=== PATIENT | female | born 1990 | race Caucasian/White ===

== ENCOUNTER 2019-08-04 16:58 | Observation (INO) | payer OTHER, SELFPAY ==
[2019-08-04] VITALS (11 sets, daily range): BP systolic 119–167; BP diastolic 77–146; PULSE 92–106; RESP 15–20; TEMP 36.7–36.9; O2SAT 97–100; BMI 30.9
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
--- NOTE | 2019-08-04 17:41 | PC.NURSE ---
ORDERED XRAYS COMPLETED AT THIS TIME AT THE BEDSIDE
--- NOTE | 2019-08-04 17:43 | PC.NURSE ---
HUMIDIFIED OXYGEN MASK PLACED ON BY CARDIOPULMONARY LAND DEGRADATION ANALYST PER ERP VERBAL ORDERS. SEE RT DOCUMENTATION.
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
[2019-08-04 17:52] LABS: Base Excess ABG -2.2 mmol/L (0-2); Basophils Absolute Auto 0.03 K/mm3 (0.00-0.10); Basophils Percent Auto 0.2 % (0.0-1.0); Carboxyhemoglobin 1.6 % (0-1.5); Eosinophils Absolute Auto 0.06 K/mm3 (0.02-0.50); Eosinophils Percent Auto 0.4 % (1.0-6.0); HCO3 ABG 22.2 mmol/L (23-29); Hematocrit 40.4 % (35.0-49.0); Hemoglobin 13.9 g/dL (12.0-15.0); Immature Granulocyte Absolute 0.06 K/mm3 (0.00-0.00); Immature Granulocyte Percent A 0.4 % (0.0-0.0); Lymphocytes Absolute Auto 2.26 K/mm3 (1.10-4.50); Lymphocytes Percent Auto 16.1 % (18.0-42.0); Mean Corpuscular HGB Conc 34.4 g/dL (32.0-36.0); Mean Corpuscular Hemoglobin 29.3 pg (27.0-31.0); Mean Corpuscular Volume 85.2 fL (78.0-102.0); Mean Platelet Volume 8.9 fl (9.2-11.8); Methemoglobin ABG 0.3 % (0-1.5); Neutrophils Percent Auto 77.9 % (50.0-70.0); Oxygen Content ABG 16.9 %vol (16.0-22.0); Oxygen Saturation ABG 84.2 % (95-97); Oxyhemoglobin 82.6 % (94-100); PCO2 ABG 37.4 mmHg (35-45); PO2 ABG 46.4 mmHg (80-90); Platelet Count Result 277 K/mm3 (150-420); Red Blood Count 4.74 M/mm3 (4.20-5.40); Red Cell Distribution Width 11.8 % (11.6-14.4); Reduced Hemoglobin 15.5 % (0-1.5); Total Hemoglobin 14.6 g/dL; White Blood Count 14.1 K/mm3 (4.8-10.8)
[2019-08-04 17:54] LABS: pH ABG 7.39 (7.35-7.45)
[2019-08-04 17:55] LABS: Device SIMPLE MASK
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
[2019-08-04 18:07] LABS: Alanine Aminotransferase 22 U/L (14-59); Albumin Level 4.4 g/dL (3.4-5.0); Alkaline Phosphatase 49 U/L (46-116); Anion Gap 15.5 mmol/L (7-16); Aspartate Amino Transferase 18 U/L (15-37); Bilirubin,Total 0.7 mg/dL (0.00-1.00); Blood Urea Nitrogen 15 mg/dL (7-18); Calcium 9.3 mg/dL (8.5-10.1); Carbon Dioxide 26 mmol/L (21-32); Chloride 105 mmol/L (98-108); Estimated CRCL calculation 80 ml/min; Estimated Glomerular Filt Rate > 60; Glucose 93 mg/dL (70-99); Osmolality Calculated 296 mOsm/kg (285-295); Potassium 3.5 mmol/L (3.5-5.1); Sodium 143 mmol/L (136-145); Total Protein 7.8 g/dL (6.4-8.2)
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
--- NOTE | 2019-08-04 20:31 | PC.NURSE ---
PT REPORTS FEELING MUCH BETTER NOW, STATES SHE IS HAVING LESS EPISODES OF COUGHING, LESS PAIN UPON INSPIRATION, AND LESS SORENESS/SCRATCHY THROAT.
--- NOTE | 2019-08-04 20:32 | PC.NURSE ---
TELEPHONE REPORT PROVIDED TO JOVON CALLAWAY AT 2014.
--- NOTE | 2019-08-04 21:20 | PC.NURSE ---
Patient resting quietly. Denies SOB unless she's talking or laughing. O2 continues @ 5 lpm/nc. Denies pain/complaints/needs @ this time. No distress noted. Call light in reach.
--- NOTE | 2019-08-04 22:05 | PC.NURSE ---
Patient doing well. O2 @ 5 lpm/simple mask. Respirations even and unlabored. Denies SOB except when talking or laughing. Denies pain/complaints/needs @ this time. No distress noted. Call light in reach.
--- NOTE | 2019-08-04 22:06 | ADMGEN ---
This patient, Casey C Bennett, was admitted to 2nd Floor Room 202-2. Patient oriented to hospital policies and general routines including ID bracelet, bed and alarms, no visiting hours @ this time, pain management, procedures, bathroom and other care routines, personal items, smoking policy, room service/diet, and visiting hours. Valuables list is clothing, wallet, cell phone and top taper machine, eye glasses. Information on how to activate the Rapid Response Team has been discussed. Patient are encouraged to report perceived risks to care and to ask questions if they do not understand what they are told or what they should do.
--- NOTE | 2019-08-04 23:20 | PC.NURSE ---
Patient still doing well. O2 @ 5 lpm/simple mask. Respirations even and unlabored. Denies SOB except when talking or laughing. Denies pain/complaints/needs @ this time. No distress noted. Call light in reach.
[2019-08-05] VITALS (8 sets, daily range): BP systolic 116–143; BP diastolic 55–80; PULSE 70–90; RESP 18–20; TEMP 36.2–36.3; O2SAT 98–100
--- NOTE | 2019-08-05 00:30 | PC.NURSE ---
Respirations even and unlabored on O2 @ 5 lpm/simple mask. Patient denies being SOB. O2 changed to 3 lpm/nc @ this time. No distress noted. Call light in reach.
--- NOTE | 2019-08-05 01:20 | PC.NURSE ---
Patient denies SOB. O2 continues @ 3 lpm/nc. Patient denies pain/complaints/needs @ this time. No distress noted. Call light in reach.
--- NOTE | 2019-08-05 02:15 | PC.NURSE ---
Respirations even and unlabored and SpO2 @ 100% with O2 @ 3 lpm/nc. Patient denies SOB. O2 turned down to 2 lpm/nc @ this time. No distress noted. Denies pain/complaints/needs. Call light in reach. 5 o
--- NOTE | 2019-08-05 03:30 | PC.NURSE ---
Patient appears to be sleeping by the rise and fall of her chest. Respirations even and unlabored. O2 on @ 2 lpm/nc. No distress noted. Call light in reach.
--- NOTE | 2019-08-05 04:51 | PC.NURSE ---
Patient's VSS. SpO2 @ 99% on 2 lpm/nc. Patient denies SOB, including with exertion. O2 decreased to 1 lpm/nc @ this time. Patient also denies pain/complaints/needs @ this time. No distress noted. Call light in reach.
--- NOTE | 2019-08-05 05:50 | PC.NURSE ---
Patient continues to deny SOB. O2 is @ 1 lpm/nc with SpO2 @ 100%. O2 turned off @ this time. Patient also denies pain/complaints/needs @ this time. No distress noted. Call light in reach.
--- NOTE | 2019-08-05 06:20 | PC.NURSE ---
Patient's SpO2 @ 98% on room air. Patient denies SOB/pain/complaints/needs @ this time. Patient denies sore throat and says she ate potato chips earlier and had a turkey sandwich in ER and would like a regular diet for breakfast. No distress noted. Call light in reach.
--- NOTE | 2019-08-05 07:30 | PC.NURSE ---
No distress, no irritation to throat, no pain, no sob, maintains airway on own, no longer requiring oxygen at this time
--- NOTE | 2019-08-05 08:30 | PC.NURSE ---
Ate well, denies needs, hoping to go home today, maintaining patent airway on own, no irritation, no sob
--- NOTE | 2019-08-05 09:31 | PC.NURSE ---
Maintains airway, denies needs
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
--- NOTE | 2019-08-05 10:43 | PC.NURSE ---
Discharge instructions reviewed with patient, denies questions, will call for ride home
--- NOTE | 2019-08-05 11:00 | PC.NURSE ---
Discharged via wheel chair to home, personal items returned to patient, no questions upon discharge home
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
--- NOTE | 2019-08-19 15:38 | PC.NURSE ---
DISCHARGE FOLLOW UP CALL: No answer, message left on voicemail
--- NOTE | 2019-08-20 14:50 | PC.NURSE ---
#2 DISCHARGE FOLLOW UP CALL: Patient at work, will call back
== END 2019-08-05 11:00 | disposition home or self-care (01) ==
LOC: CHSED 19:29 → CHS2ND 20:02
PROVIDERS: Admitting Provider Emergency Medicine; Emergency Provider Emergency Medicine; PCP Nurse Practitioner Psychiatric/Mental Health; Visit Provider Emergency Medicine
DX: T59.811A Toxic effect of smoke, accidental (unintentional), initial encounter (principal); J70.5 Respiratory conditions due to smoke inhalation; Y92.019 Unspecified place in single-family (private) house as the place of occurrence of the external cause
CPT/HCPCS: 36415; 36600; 70360; 71045; 80053; 82375; 82805; 83050; 85025; 99285; G0378

== ENCOUNTER 2019-10-14 17:56 | Outpatient (CLI) | payer OTHER, SELFPAY ==
--- NOTE | ~2019-10-14 | XR_ITS ---
EXAMINATION: XR ankle RT min 3V INDICATION: Lateral ankle pain TECHNIQUE: Four views of the right ankle are obtained. COMPARISON: None available FINDINGS: There is no fracture, dislocation, or subluxation. The bones, soft tissues, and joint space s are normal. IMPRESSION: 1. No acute osseous abnormality. Reviewed, dictated and finalized at location A.
== END 2019-10-14 17:57 | disposition home or self-care (01) ==
LOC: CHSIMG 17:58
PROVIDERS: PCP Nurse Practitioner Psychiatric/Mental Health; Visit Provider Nurse Practitioner Psychiatric/Mental Health
DX: M25.571 Pain in right ankle and joints of right foot (principal)
CPT/HCPCS: 73610

== ENCOUNTER 2020-05-14 14:17 | Outpatient (CLI) | payer SELFPAY ==
[2020-05-14 15:21] LABS: SARS-CoV-2 Ag Negative (Negative)
[2020-05-16 17:16] LABS: SARS-CoV-2 RNA PCR Negative
== END 2020-05-14 14:18 | disposition home or self-care (01) ==
LOC: CHSLAB 14:20
PROVIDERS: PCP Family Medicine; Visit Provider Nurse Practitioner Psychiatric/Mental Health
DX: R09.81 Nasal congestion (principal); Z20.822 Contact with and (suspected) exposure to COVID-19
CPT/HCPCS: 87426; C9803; U0003; U0005

== ENCOUNTER 2021-08-09 13:30 | Outpatient (CLI) | payer BC, SELFPAY ==
--- NOTE | ~2021-08-09 | US_ITS ---
EXAMINATION: US OB BPP wo non-stress DATE: 08/09/2021 15:29 INDICATION: Maternal gestational diabetes. Cholestasis. TECHNIQUE: Real-time pelvic ultrasound was performed. The interpreting radiologist was not present fo r the study. COMPARISON: None. FINDINGS: There is a single living fetus in vertex presentation. The placenta is posterior. heart rate i s 152 beats per minute (bpm). Biophysical profile performed by the technologist: breathing (30 sec sustained breathing in 30 minutes): 2 out of 2 movement (3 gross body movements in 30 minutes): 2 out of 2 tone (one episode of bntgykx-jwnujxlmw-eqybjhf limb movement): 2 out of 2 Amniotic fluid pocket (2 cm): 2 out of 2 Total score: 8 out of 8 IMPRESSION: 1. Single living fetus in vertex presentation with heart rate of 152 bpm. 2. Biophysical profile 8 out of 8. Reviewed, dictated and finalized at location A.
[2021-08-09 13:59] VITALS: BP 157/100; PULSE 83
[2021-08-09 14:16] VITALS: BP 154/86; PULSE 84
[2021-08-09 14:32] VITALS: BP 154/86; PULSE 77
[2021-08-09 14:43] LABS: Basophils Percent Auto 0.3 % (0.2-1.2); Eosinophils Absolute Auto 0.2 K/mm3 (0-0.3); Eosinophils Percent Auto 2.3 % (0-4.4); Hematocrit 33.6 % (37.0-47.0); Hemoglobin 11.5 g/dL (12.0-15.0); Immature Granulocyte Absolute 0.06 K/mm3 (0.00-0.031); Immature Granulocyte Percent A 0.6 % (0-0.5); Lymphocytes Absolute Auto 2.03 K/mm3 (0.9-3.2); Lymphocytes Percent Auto 20.3 % (18.3-44.2); Mean Corpuscular HGB Conc 34.2 g/dl (32-36); Mean Corpuscular Hemoglobin 29.9 pg (26-34); Mean Corpuscular Volume 87.5 fl (80-100); Mean Platelet Volume 9.5 fl (7.4-10.4); Monocytes Absolute Auto 0.8 K/mm3 (0.1-0.6); Monocytes Percent Auto 7.6 % (2.6-8.5); Neutrophils Absolute Auto 6.9 K/mm3 (1.3-6.7); Neutrophils Percent Auto 68.9 % (45.5-73.1); Platelet Count Result 309 k/mm3 (150-375); Red Blood Count 3.84 M/mm3 (4.2-5.4); Red Cell Distribution Width 12.8 % (11.5-14.5)
[2021-08-09 14:46] VITALS: BP 154/87; PULSE 82
[2021-08-09 14:49] LABS: Appearance Urine Clear (Clear); Bilirubin Urine Negative (Negative); Blood Urine Negative (Negative); Color Urine Yellow (Yellow); Glucose Urine UA Negative (Negative); Ketones Urine Negative (Negative); Leukocyte Esterase Ur Trace LEU/UL (NEGATIVE); Nitrate Urine Negative (Negative); Protein Urine Negative (Negative); Specific Grav Ur <= 1.005 (1.001-1.035); Urobilinogen Urine 0.2 mg/dL (<2.0); pH Urine 6.5 (5.0-9.0)
[2021-08-09 14:53] LABS: Alanine Aminotransferase 15 U/L (4-35); Albumin Level 3.7 g/dL (3.5-5.1); Alkaline Phosphatase 84 U/L (38-126); Anion Gap 5 mmol/L (8-16); Aspartate Amino Transferase 22 U/L (14-36); Bilirubin,Total 0.3 mg/dL (0.2-1.3); Blood Urea Nitrogen 9 mg/dL (7-17); Calcium 9.5 mg/dL (8.4-10.2); Carbon Dioxide 22 mmol/L (22-30); Chloride 106 mmol/L (98-107); Estimated Glomerular Filt Rate > 60; Glucose 109 mg/dL (65-110); Potassium 3.9 mmol/L (3.4-5.0); Sodium 133 mmol/L (137-145); Uric Acid 5.5 mg/dL (2.5-7.5)
[2021-08-09 15:03] LABS: Bacteria Urine 2+ /hpf; RBC Urine 0-2 /hpf (0-2); Squamous Epithelial Cell Urine Rare /hpf (Few); WBC Urine 0-3 /hpf (0-3)
[2021-08-09 15:04] LABS: Creatinine Urine 13.8 mg/dL; Total Protein Urine Random 15 mg/dL; Ur Ttl Prot Creatinine Ratio 1.09 mg/mg (0-0.20)
[2021-08-09 15:29] LABS: Add Urine Microscopic? YES
--- NOTE | 2021-08-09 17:10 | PC.NURSE ---
1606- called,read labs and bp's. Order received to send pt home on modified bedrest, pre-eclampsia precautions, and with a 24hr urine.
--- NOTE | 2021-08-09 17:11 | PC.NURSE ---
1330-Pt was sent over from the office for elevated bp, PIH orders received along with NST and BPP
== END 2021-08-09 16:15 | disposition home or self-care (01) ==
LOC: ANHOBOP 13:42 → ANHOBPP 08-15 08:25
PROVIDERS: PCP Family Medicine; Visit Provider Obstetrics & Gynecology
DX: O24.419 Gestational diabetes mellitus in pregnancy, unspecified control (principal); Z3A.00 Weeks of gestation of pregnancy not specified
CPT/HCPCS: 36415; 59025; 76819; 80053; 81001; 82570; 84156; 84550; 85025; 87086; 99199

== ENCOUNTER 2021-08-10 19:10 | Outpatient (NON) | payer BC, SELFPAY ==
[2021-08-11 00:26] VITALS: BMI 36.6
[2021-08-11 02:27] LABS: Collection Time Urine 24 HOURS
[2021-08-11 05:43] LABS: Creatinine Urine 86.1 mg/dL; Patient Weight 220 Lbs
[2021-08-11 06:00] LABS: Creatinine Clearance Urine 138.6 ml/min (75-125); Total Volume 24 Hour Urine 2200 ml
[2021-08-12 10:01] LABS: Total Protein Urine 24 Hr 374 mg/24hr (28-141); Total Protein Urine Random 17 mg/dL
== END 2021-08-10 19:11 | disposition home or self-care (01) ==
LOC: ANHOBOP 23:57
PROVIDERS: PCP Family Medicine; Visit Provider Obstetrics & Gynecology
DX: R80.9 Proteinuria, unspecified (principal)
CPT/HCPCS: 81050; 82575; 84156

== ENCOUNTER 2021-08-12 16:01 | Outpatient (CLI) | payer BC, SELFPAY ==
[2021-08-12 17:00] LABS: Basophils Percent Auto 0.2 % (0.2-1.2); Eosinophils Absolute Auto 0.2 K/mm3 (0-0.3); Eosinophils Percent Auto 1.9 % (0-4.4); Hematocrit 33.4 % (37.0-47.0); Hemoglobin 11.2 g/dL (12.0-15.0); Immature Granulocyte Absolute 0.09 K/mm3 (0.00-0.031); Immature Granulocyte Percent A 0.8 % (0-0.5); Lymphocytes Absolute Auto 2.13 K/mm3 (0.9-3.2); Lymphocytes Percent Auto 19.5 % (18.3-44.2); Mean Corpuscular HGB Conc 33.5 g/dl (32-36); Mean Corpuscular Hemoglobin 29.7 pg (26-34); Mean Corpuscular Volume 88.6 fl (80-100); Mean Platelet Volume 9.3 fl (7.4-10.4); Monocytes Absolute Auto 0.9 K/mm3 (0.1-0.6); Monocytes Percent Auto 8.1 % (2.6-8.5); Neutrophils Absolute Auto 7.6 K/mm3 (1.3-6.7); Neutrophils Percent Auto 69.5 % (45.5-73.1); Platelet Count Result 281 k/mm3 (150-375); Red Blood Count 3.77 M/mm3 (4.2-5.4); White Blood Count 10.9 K/mm3 (4.5-10.0)
[2021-08-12 17:01] VITALS: BP 146/87; PULSE 77
[2021-08-12 17:04] LABS: Add Urine Microscopic? YES; Appearance Urine Clear (Clear); Bacteria Urine 4+ /hpf; Bilirubin Urine Negative (Negative); Blood Urine Negative (Negative); Color Urine Straw (Yellow); Glucose Urine UA Negative (Negative); Ketones Urine Negative (Negative); Leukocyte Esterase Ur Trace LEU/UL (NEGATIVE); Mucus Urine Rare /lpf; Nitrate Urine Negative (Negative); Protein Urine Negative (Negative); RBC Urine 0-2 /hpf (0-2); Specific Grav Ur 1.003 (1.001-1.035); Squamous Epithelial Cell Urine Few /hpf (Few); Urobilinogen Urine Negative mg/dL (<2.0); WBC Urine 0-3 /hpf (0-3)
[2021-08-12 17:16] VITALS: BP 145/85; PULSE 79
[2021-08-12 17:16] LABS: Alanine Aminotransferase 13 U/L (4-35); Albumin Level 3.6 g/dL (3.5-5.1); Alkaline Phosphatase 78 U/L (38-126); Anion Gap 5 mmol/L (8-16); Aspartate Amino Transferase 20 U/L (14-36); Bilirubin,Total 0.3 mg/dL (0.2-1.3); Blood Urea Nitrogen 10 mg/dL (7-17); Carbon Dioxide 21 mmol/L (22-30); Chloride 106 mmol/L (98-107); Estimated Glomerular Filt Rate > 60; Glucose 86 mg/dL (65-110); Sodium 132 mmol/L (137-145); Uric Acid 4.8 mg/dL (2.5-7.5)
[2021-08-12 17:21] LABS: Creatinine Urine 18.5 mg/dL; Total Protein Urine Random 14 mg/dL; Ur Ttl Prot Creatinine Ratio 0.76 mg/mg (0-0.20)
[2021-08-12 17:31] VITALS: BP 152/86; PULSE 88
[2021-08-12 17:33] VITALS: BP 146/87; PULSE 79
--- NOTE | 2021-08-12 17:35 | PC.NURSE ---
Dr Goins notified of lab results, BP's, reactive tracing and contractions that were noted and patient not feeling them. Ok to dc home with precautions. RX for Macrobid 100mg BID for 7 day.
== END 2021-08-12 17:45 | disposition home or self-care (01) ==
LOC: ANHOBOP 16:12 → ANHOBPP 16:13
PROVIDERS: Advanced Practice Midwife; PCP Family Medicine; Visit Provider Obstetrics & Gynecology
DX: O13.9 Gestational [pregnancy-induced] hypertension without significant proteinuria, unspecified trimester (principal); Z3A.00 Weeks of gestation of pregnancy not specified
CPT/HCPCS: 36415; 59025; 80053; 81001; 82570; 84156; 84550; 85025; 87086; 99199

== ENCOUNTER 2021-08-19 10:05 | Inpatient (IN) | payer BC, SELFPAY ==
[2021-08-19] VITALS (88 sets, daily range): BP systolic 121–190; BP diastolic 61–118; PULSE 74–121; RESP 16–20; TEMP 36.6–37.4; O2SAT 86–100; BMI 36.3; BMI 37.0
[2021-08-19 10:40] LABS: Basophils Percent Auto 0.3 % (0.2-1.2); Eosinophils Absolute Auto 0.3 K/mm3 (0-0.3); Eosinophils Percent Auto 2.2 % (0-4.4); Hematocrit 34.3 % (37.0-47.0); Hemoglobin 11.4 g/dL (12.0-15.0); Immature Granulocyte Percent A 0.8 % (0-0.5); Lymphocytes Percent Auto 16.1 % (18.3-44.2); Mean Corpuscular HGB Conc 33.2 g/dl (32-36); Mean Corpuscular Hemoglobin 29.5 pg (26-34); Mean Corpuscular Volume 88.9 fl (80-100); Mean Platelet Volume 9.5 fl (7.4-10.4); Monocytes Absolute Auto 0.6 K/mm3 (0.1-0.6); Monocytes Percent Auto 4.7 % (2.6-8.5); Neutrophils Percent Auto 75.9 % (45.5-73.1); Platelet Count Result 239 k/mm3 (150-375); Red Blood Count 3.86 M/mm3 (4.2-5.4); Red Cell Distribution Width 13.2 % (11.5-14.5); White Blood Count 11.8 K/mm3 (4.5-10.0)
[2021-08-19 10:48] LABS: Add Urine Microscopic? YES; Appearance Urine Cloudy (Clear); Bacteria Urine Trace /hpf; Bilirubin Urine Negative (Negative); Color Urine Yellow (Yellow); Glucose Urine UA Negative (Negative); Ketones Urine Negative (Negative); Leukocyte Esterase Ur 1+ LEU/UL (Negative); Nitrate Urine Negative (Negative); Protein Urine 1+ mg/dL (Negative); Squamous Epithelial Cell Urine Moderate /hpf (Few); Urobilinogen Urine Negative mg/dL (<2.0); WBC Urine 16-20 /hpf
[2021-08-19 10:53] LABS: Alanine Aminotransferase 15 U/L (4-35); Albumin Level 3.3 g/dL (3.5-5.1); Alkaline Phosphatase 82 U/L (38-126); Anion Gap 9 mmol/L (8-16); Aspartate Amino Transferase 22 U/L (14-36); Bilirubin,Total 0.3 mg/dL (0.2-1.3); Blood Urea Nitrogen 13 mg/dL (7-17); Calcium 9.1 mg/dL (8.4-10.2); Carbon Dioxide 19 mmol/L (22-30); Chloride 104 mmol/L (98-107); Creatinine Urine 135.3 mg/dL; Estimated CRCL calculation 119 ml/min; Estimated Glomerular Filt Rate > 60; Glucose 140 mg/dL (65-110); Potassium 3.9 mmol/L (3.4-5.0); Sodium 132 mmol/L (137-145); Total Protein Urine Random 21 mg/dL; Ur Ttl Prot Creatinine Ratio 0.16 mg/mg (0-0.20); Uric Acid 5.7 mg/dL (2.5-7.5)
[2021-08-19 11:08] LABS: Blood Urine Negative (Negative)
--- NOTE | 2021-08-19 11:53 | PC.NURSE ---
Vick Nixon CN notified of BP's, lab results, and reactive NST. SUJATHAM has already spoken with Dr. Andrade regarding this pt and orders received to admit for induction of labor and magnesium sulfate.
--- NOTE | 2021-08-19 12:42 | PM.IMHP ---
H&P: HPI History of Present Illness Date/Time: 08/19/21 12:42 @ 35.4 weeks. Patient being admitted for IOL for pre eclampsia with severe range blood pressures, Cholestasis, and GDM. IVF . [employer] hx complicated by PCOS. Prior hx of hypertension. Currently taking aspirin and ursodiol. Currently denies headache, but has faiza having increase in daily mild headache. Has occasional visual changes. Denies epigastric pain. Consulted Dr. Andrade. Chief Complaint: Severe range blood pressures Review of Systems Review of Systems: All systems reviewed & are unremarkable except as noted in HPI and below PMFSH Family History Family History Grandparent Family history of blood dyscrasia, Onset Age: 64 Family history of elevated blood lipids Family history of coronary artery disease Diabetes mellitus Father Hypertension Family history of diabetes mellitus in first degree relative Mother Family history of hypothyroidism Social History Social History Smoking status: Never smoker Second hand tobacco smoke exposure: No Alcohol intake: current Drinks per week: 1 Substance use: never Substance use type: does not use Gender identity (if verbalized by the patient): Female Spiritual care concerns: No Agree to blood products: Yes Meds Home Medications and Allergies Home Medications Medication Instructions Recorded Confirmed Type nitrofurantoin macrocrystal 100 mg PO Q12H #14 cap 08/12/21 08/19/21 Rx PNV cmb#95-ferrous fumarate-FA 1 tablet PO DAILY 08/19/21 08/19/21 History [] aspirin 81 mg PO DAILY 08/19/21 08/19/21 History ursodiol 300 mg PO BID 08/19/21 08/19/21 History Allergies Allergy/AdvReac Type Severity Reaction Status Date / Time Penicillins Allergy Unknown Unknown Verified 08/19/21 10:51 Vital Signs Vital Signs - 24 hr 08/19/21 10:32 08/19/21 10:33 08/19/21 10:44 Pulse Rate 104 H 93 104 H Blood Pressure 138/96 H 157/100 H Blood Pressure [Left Arm] 157/100 H Blood Pressure [Right Arm] 138/96 H 08/19/21 10:45 08/19/21 10:54 08/19/21 10:56 Pulse Rate 98 97 88 Blood Pressure 154/98 H 152/92 H 154/90 H Blood Pressure [Left Arm] Blood Pressure [Right Arm] 08/19/21 11:00 08/19/21 11:15 08/19/21 11:30 Pulse Rate 101 H 99 102 H Blood Pressure 151/88 H 148/95 H 146/92 H Blood Pressure [Left Arm] Blood Pressure [Right Arm] 08/19/21 11:45 Pulse Rate 99 Blood Pressure 142/100 H Blood Pressure [Left Arm] Blood Pressure [Right Arm] Exam Narrative: 2/80/-2 AROM, small amount of clear fluid Const: General: cooperative, healthy appearing and comfortable H&P: Results Labs Labs: Short CBC 08/19/21 Range/Units 10:32 WBC 11.8 H (4.5-10.0) K/mm3 Hgb 11.4 L (12.0-15.0) g/dL Hct 34.3 L (37.0-47.0) % Plt Count 239 (150-375) k/mm3 BMP 08/19/21 10:32 Sodium 132 L Potassium 3.9 Chloride 104 Carbon Dioxide 19 L BUN 13 Creatinine 0.70 Glucose 140 H Calcium 9.1 Liver Function 08/19/21 Range/Units 10:32 Total Bilirubin 0.3 (0.2-1.3) mg/dL AST 22 (14-36) U/L ALT 15 (4-35) U/L Alkaline Phosphatase 82 (38-126) U/L Albumin 3.3 L (3.5-5.1) g/dL Urine 08/19/21 Range/Units 10:32 Urine Color Yellow (Yellow) Urine Appearance Cloudy H (Clear) Urine pH 6.0 (5.0-9.0) Ur Specific [place] 1.020 (1.001-1.035) Urine Protein 1+ H (Negative) mg/dL Urine Glucose (UA) Negative (Negative) mg/dL Assessment and Plan Additional Plan at 35.4 weeks with severe pre eclampsia. Plan magnesium sulfate, monitor BP
[2021-08-19] MEDS: LACTATED RINGERS 1,000 ML 75 ML IV CONT (13:01)
[2021-08-19] MEDS: OXYTOCIN 30 UNITS/NS 500 ML 30 UNITS/500 ML BAG IV CONT (13:01)
[2021-08-19] MEDS: ceFAZolin 2 GM/D5W 50 ML 2 GM/50 ML BAG IVPB (13:02)
[2021-08-19 14:25] LABS: Glucose Point of Care 91 mg/dl (65-105)
[2021-08-19] MEDS: MAGNESIUM SULF 4 GM/WATER100ML 4 GM/100 ML BAG IVPB (15:00)
--- NOTE | 2021-08-19 15:05 | LDADM ---
This patient, Casey C Bennett, was admitted to Labor/Delivery/Recovery 105 on 08/19/21 at 10:05. Plans for labor, pain management and were discussed with patient. Patient/family oriented to hospital policies and general routines including ID bracelet, bed and alarms, visiting hours, pain management, procedures, bathroom and other care routines, personal items, smoking policy, room service/diet and guest tray routines, infant security routines, and visiting hours. Patient/Family are encouraged to report perceived risks to care and to ask questions if they do not understand what they are told or what they should do. See OBIX for further documentation.
[2021-08-19] MEDS: MAGNESIUM SULF 20GM/WATER500ML 500 ML 50 MG IV CONT (15:29)
--- NOTE | 2021-08-19 18:38 | WPDANESEPP ---
Anes - Eval Pre Procedure Procedure: labor epidural Date/Time: 08/19/21 18:38 Surgeon: carlos manuel Pre Op Diagnosis: Induction of Labor Patient Data Age: 31 Gender: F Height: 1.65 m Weight: 101 kg Last Vital Signs Temp 36.6 C 08/19/21 17:00 Pulse 80 08/19/21 18:31 Resp 16 08/19/21 15:00 BP 135/103 H 08/19/21 18:31 Allergies Allergy/AdvReac Type Severity Reaction Status Date / Time Penicillins Allergy Unknown Unknown Verified 08/19/21 10:51 Home Medications Medication Instructions Recorded Confirmed Type nitrofurantoin macrocrystal 100 mg PO Q12H #14 cap 08/12/21 08/19/21 Rx PNV cmb#95-ferrous fumarate-FA 1 tablet PO DAILY 08/19/21 08/19/21 History [] aspirin 81 mg PO DAILY 08/19/21 08/19/21 History ursodiol 300 mg PO BID 08/19/21 08/19/21 History Laboratory Tests 08/19/21 08/19/21 08/19/21 10:32 10:32 10:32 WBC 11.8 K/mm3 H K/mm3 (4.5-10.0) RBC 3.86 M/mm3 L M/mm3 (4.2-5.4) Hgb 11.4 g/dL L g/dL (12.0-15.0) Hct 34.3 % L % (37.0-47.0) MCV 88.9 fl fl (80-100) MCH 29.5 pg pg (26-34) MCHC 33.2 g/dl g/dl (32-36) RDW 13.2 % % (11.5-14.5) Plt Count 239 k/mm3 k/mm3 (150-375) MPV 9.5 fl fl (7.4-10.4) Immature Gran % (Auto) 0.8 % H % (0-0.5) Neut % (Auto) 75.9 % H % (45.5-73.1) Lymph % (Auto) 16.1 % L % (18.3-44.2) [place] % (Auto) 4.7 % % (2.6-8.5) Eos % (Auto) 2.2 % % (0-4.4) Baso % (Auto) 0.3 % % (0.2-1.2) Lymph # (Auto) 1.90 K/mm3 K/mm3 (0.9-3.2) [place] # (Auto) 0.6 K/mm3 K/mm3 (0.1-0.6) Eos # (Auto) 0.3 K/mm3 K/mm3 (0-0.3) Baso # (Auto) 0.0 K/mm3 K/mm3 (0.0-0.1) Abs Immat Gran (auto) 0.10 K/mm3 H K/mm3 (0.00-0.031) Absolute Neuts (auto) 9.0 K/mm3 H K/mm3 (1.3-6.7) Absolute Nucleated RBC 0.0 K/mm3 K/mm3 (0.0-0.012) Nucleated RBC % 0.0 % % (0.0-0.2) Sodium 132 mmol/L L mmol/L (137-145) Potassium 3.9 mmol/L mmol/L (3.4-5.0) Chloride 104 mmol/L mmol/L (98-107) Carbon Dioxide 19 mmol/L L mmol/L (22-30) Anion Gap 9 mmol/L mmol/L (8-16) BUN 13 mg/dL mg/dL (7-17) Creatinine 0.70 mg/dL mg/dL (0.7-1.0) Estim Creat Clear Calc 119 ml/min ml/min Estimated GFR > 60 (59 - ) Glucose 140 mg/dL H mg/dL (65-110) POC Capillary Glucose Uric Acid 5.7 mg/dL mg/dL (2.5-7.5) Calcium 9.1 mg/dL mg/dL (8.4-10.2) Total Bilirubin 0.3 mg/dL mg/dL (0.2-1.3) AST 22 U/L U/L (14-36) ALT 15 U/L U/L (4-35) Alkaline Phosphatase 82 U/L U/L (38-126) Total Protein 7.0 g/dL g/dL (6.3-8.2) Albumin 3.3 g/dL L g/dL (3.5-5.1) Urine Color Urine Appearance Urine pH Ur Specific [place] Urine Protein Urine Glucose (UA) Urine Ketones Ur Blood (Man) Urine Nitrate Urine Bilirubin Urine Urobilinogen Leukocyte Esterase Rfl Urine RBC Urine WBC Ur Squamous Epith Cells Urine Bacteria U Random Total Protein 21 mg/dL mg/dL Urine Creatinine 135.3 mg/dL mg/dL Protein/Creat Ratio 2 0.16 mg/mg mg/mg (0-0.20) RPR Blood Type Antibody Screen 08/19/21 08/19/21 08/19/21 10:32 12:35 12:35 WBC RBC Hgb Hct MCV MCH MCHC RDW Plt Count MPV Immature Gran % (Auto) Neut % (Auto) Lymph % (Auto) [place] % (Auto) Eos % (Auto)
[2021-08-19 19:08] LABS: Glucose Point of Care 94 mg/dl (65-105)
--- NOTE | 2021-08-19 20:04 | PM.OBPRVD ---
OB - Delivery Note Procedure Delivery date: 08/19/21 Events: Gestational Diabetes, Preeclampsia w severe features and Other (Cholestasis) Induction method: AROM and Per Pitocin Protocol Delivery monitor: External FHT and External Uterine Route of delivery: Laceration Description: None Specimen: Yes Quantitative Blood Loss (ml): 127 Anesthesia type: Epidural Disposition: Floor Narrative: Vaginal delivery of baby girl. Mother and baby skin to skin and in stable condition. Baby Date of : 08/19/21 Time of : 19:50 Weeks of gestation at delivery: 35 gender: Female Weight (pounds): 5 Weight (ounces): 5 presentation: vertex position: Left Occiput Anterior Placenta delivery description: Spontaneous Cord Vessel Description: 3 Vessels, Nuchal Cord (reduced x1), Loose, Reduced, Clamped/Cut and Delayed Cord Clamping (2 mins) score one minute: 8 score five minutes: 9
[2021-08-19] MEDS: OXYTOCIN 30 UNITS/NS 500 ML 30 UNITS/500 ML BAG 125 UNITS IV CONT (20:38)
[2021-08-19] MEDS: ACETAMINOPHEN 325 MG TABLET 650 MG PO (22:03)
[2021-08-19] MEDS: IBUPROFEN 600 MG TABLET PO (22:04)
[2021-08-19] MEDS: BENZOCAINE 20% AER SPR (*SP) 56 GM CAN 1 SPRAY TOPICAL (22:04)
[2021-08-19] MEDS: WITCH HAZEL 40 PADS 1 PAD TOPICAL (22:04)
[2021-08-20] VITALS (7 sets, daily range): BP systolic 135–153; BP diastolic 86–103; PULSE 88–107; RESP 16–20; TEMP 36.5–36.9; O2SAT 100
[2021-08-20] MEDS: MAGNESIUM SULF 20GM/WATER500ML 500 ML 50 MG IV CONT ×2 (00:57→11:05)
[2021-08-20 05:39] LABS: Basophils Percent Auto 0.2 % (0.2-1.2); Eosinophils Absolute Auto 0.1 K/mm3 (0-0.3); Eosinophils Percent Auto 0.5 % (0-4.4); Hematocrit 33.9 % (37.0-47.0); Hemoglobin 11.6 g/dL (12.0-15.0); Immature Granulocyte Absolute 0.16 K/mm3 (0.00-0.031); Immature Granulocyte Percent A 0.8 % (0-0.5); Mean Corpuscular HGB Conc 34.2 g/dl (32-36); Mean Corpuscular Hemoglobin 30.2 pg (26-34); Mean Corpuscular Volume 88.3 fl (80-100); Mean Platelet Volume 9.9 fl (7.4-10.4); Monocytes Absolute Auto 1.3 K/mm3 (0.1-0.6); Monocytes Percent Auto 6.7 % (2.6-8.5); Neutrophils Absolute Auto 15.1 K/mm3 (1.3-6.7); Neutrophils Percent Auto 78.8 % (45.5-73.1); Platelet Count Result 259 k/mm3 (150-375); Red Blood Count 3.84 M/mm3 (4.2-5.4); Red Cell Distribution Width 13.2 % (11.5-14.5); White Blood Count 19.2 K/mm3 (4.5-10.0)
[2021-08-20 05:56] LABS: Alanine Aminotransferase 13 U/L (4-35); Albumin Level 3.2 g/dL (3.5-5.1); Alkaline Phosphatase 87 U/L (38-126); Anion Gap 3 mmol/L (8-16); Aspartate Amino Transferase 27 U/L (14-36); Bilirubin,Total 0.4 mg/dL (0.2-1.3); Blood Urea Nitrogen 12 mg/dL (7-17); Calcium 7.5 mg/dL (8.4-10.2); Carbon Dioxide 20 mmol/L (22-30); Chloride 106 mmol/L (98-107); Estimated CRCL calculation 120 ml/min; Estimated Glomerular Filt Rate > 60; Glucose 67 mg/dL (65-110); Potassium 4.2 mmol/L (3.4-5.0); Sodium 129 mmol/L (137-145); Uric Acid 5.2 mg/dL (2.5-7.5)
[2021-08-20] MEDS: LACTATED RINGERS 1,000 ML 75 ML IV CONT (08:15)
[2021-08-20] MEDS: DOCUSATE SODIUM 100 MG CAPSULE PO ×2 (10:06→17:01)
[2021-08-20] MEDS: IBUPROFEN 600 MG TABLET PO ×2 (10:07→17:01)
[2021-08-20] MEDS: MULTIVIT/MIN/PREN/FOL AC/IRON TABLET 1 TAB PO (10:08)
--- NOTE | 2021-08-20 13:28 | PM.OBPNVD ---
OB - PN: Subj Subjective Date/time seen: 08/20/21 13:28 Patient comments: no complaints, pain well controlled, incisional pain, tolerating diet and flatus present OB - PN: Obj Data Labs CBC & Chem 7: 08/20/21 04:54 08/20/21 04:54 Labs: Laboratory Results - last 24 hr 08/19/21 08/19/21 08/19/21 12:35 14:23 18:36 WBC RBC Hgb Hct MCV MCH MCHC RDW Plt Count MPV Immature Gran % (Auto) Neut % (Auto) Lymph % (Auto) [place] % (Auto) Eos % (Auto) Baso % (Auto) Lymph # (Auto) [place] # (Auto) Eos # (Auto) Baso # (Auto) Abs Immat Gran (auto) Absolute Neuts (auto) Absolute Nucleated RBC Nucleated RBC % Sodium Potassium Chloride Carbon Dioxide Anion Gap BUN Creatinine Estim Creat Clear Calc Estimated GFR Glucose POC Capillary Glucose 91 94 Uric Acid Calcium Total Bilirubin AST ALT Alkaline Phosphatase Total Protein Albumin Antibody Screen Negative 08/20/21 08/20/21 04:54 04:54 WBC 19.2 H RBC 3.84 L Hgb 11.6 L Hct 33.9 L MCV 88.3 MCH 30.2 MCHC 34.2 RDW 13.2 Plt Count 259 MPV 9.9 Immature Gran % (Auto) 0.8 H Neut % (Auto) 78.8 H Lymph % (Auto) 13.0 L [place] % (Auto) 6.7 Eos % (Auto) 0.5 Baso % (Auto) 0.2 Lymph # (Auto) 2.50 [place] # (Auto) 1.3 H Eos # (Auto) 0.1 Baso # (Auto) 0.0 Abs Immat Gran (auto) 0.16 H Absolute Neuts (auto) 15.1 H Absolute Nucleated RBC 0.0 Nucleated RBC % 0.0 Sodium 129 L Potassium 4.2 Chloride 106 Carbon Dioxide 20 L Anion Gap 3 L BUN 12 Creatinine 0.70 Estim Creat Clear Calc 120 Estimated GFR > 60 Glucose 67 POC Capillary Glucose Uric Acid 5.2 Calcium 7.5 L Total Bilirubin 0.4 AST 27 ALT 13 Alkaline Phosphatase 87 Total Protein 6.0 L Albumin 3.2 L Antibody Screen OB - PN A/P Plan day: 1 Plan: routine care Comments: No problems, routine care Time Spent With Patient Time: Total time spent is greater than 50% in coordination of care (as documented) at patient's floor/unit and/or counseling patient: Exam Const: General: comfortable, no acute distress and alert Resp: Effort & Inspection: normal respiratory effort Auscultation: no crackles, no rales and no rhonchi Cardio: Rate: regular rate Heart sounds: no click, no murmurs and no rubs GI: Inspection: non-distended GI Palp: No Tenderness to palpation present (GI) Auscultation: normal bowel sounds Other: Incision - CDI Extrem: General: normal to inspection, no pedal edema and no calf tenderness
[2021-08-20] MEDS: LANOLIN (LANSINOH) 7.5 GM CREAM 1 APPLIC TOPICAL (17:01)
[2021-08-21 04:00] VITALS: BP 118/70; PULSE 73; RESP 18; TEMP 36.8
[2021-08-21] MEDS: TETANUS,DIPHTHERIA,AC PERTUSSIS ADULT (0.5 ML) BOOSTRIX IM (04:43)
--- NOTE | 2021-08-21 06:28 | P.PNOB_ITS ---
OB - PN: Subj Subjective Date/time seen: 08/21/21 06:28 Patient comments: no complaints, pain well controlled and tolerating diet OB - PN: Obj Data Labs CBC & Chem 7: 08/20/21 04:54 08/20/21 04:54 OB - PN A/P Plan day: 2 Plan: routine care and discharge home Time Spent With Patient Time: Total time spent is greater than 50% in coordination of care (as docume nted) at patient's floor/unit and/or counseling patient: Exam Const: General: comfortable and no acute distress Resp: Effort & Inspection: normal respiratory effort Auscultation: no rales, no rhonchi and no wheezes Cardio: Rate: regular rate Heart sounds: no click, no murmurs and no rubs GI: GI Palp: Yes Soft to palpation and No Tenderness to palpation present (GI) Auscultation: normal bowel sounds Extrem: General: normal to inspection, no pedal edema and no calf tenderness
--- NOTE | 2021-08-21 06:29 | PM.OBDSVD ---
DS: Admitting Diagnosis Discharge Date 08/21/2021 Admitting Diagnosis preeclampsia DS: Discharge Diagnosis Discharge Diagnosis (1) Preeclampsia, severe: Code(s): O14.10 - Severe pre-eclampsia, unspecified trimester Status: Acute OB - DS: Summary OB Procedures : PIH Mgmt OB Procedures Intrapartum: Spontaneous Vag Delivery OB Procedures: : None Time Spent with Patient Time attestation: Total time spent providing and/or coordinating discharge services: DS: Data Data Completed and Pending Pending studies at discharge: Pending at discharge 08/19/21 20:20 Surgical [PTH] Routine Discharge Plan Discharge Discharging Clinician: Megan Andrade Patient Disposition: Home, Self-Care Activity: pelvic rest Diet: regular Patient Instructions: Antibiotic Form Stand Alone Forms: General Discharge Information Follow-up/Referrals: Megan Andrade MD [Physician] - Discharge Medications: Continued nitrofurantoin macrocrystal 100 mg Capsule 100 mg PO Q12H Qty: 14 RF: 0 ursodiol 300 mg capsule 300 mg PO BID RF: 0 aspirin 81 mg Tablet 81 mg PO DAILY RF: 0 PNV cmb#95-ferrous fumarate-FA [] 28 mg iron- 800 mcg Tablet 1 tablet PO DAILY RF: 0 Date of admission: 08/19/21 10:05 Primary Care Provider: VerenaBlas Admitting Provider: Megan Andrade Attending physician on admission: Megan Andrade Condition: Stable
--- NOTE | 2021-08-21 06:33 | P.PNOB_ITS ---
OB - PN: Subj Subjective Date/time seen: 08/21/21 06:33 Patient comments: no complaints, pain well controlled, incisional pain, tolerating diet and flatus present OB - PN: Obj Data Labs CBC & Chem 7: 08/20/21 04:54 08/20/21 04:54 OB - PN A/P Plan day: 2 Plan: routine care Comments: POD#2 LTCS - no problems, Time Spent With Patient Time: Total time spent is greater than 50% in coordination of care (as cresencio arias) at patient's floor/unit and/or counseling patient: Exam Const: General: comfortable, no acute distress and alert Resp: Effort & Inspection: normal respiratory effort Auscultation: no crackles, no rales and no rhonchi Cardio: Rate: regular rate Heart sounds: no click, no murmurs and no rubs GI: Inspection: non-distended GI Palp: No Tenderness to palpation present (GI) Auscultation: normal bowel sounds Other: Incision - CDI Extrem: General: normal to inspection, no pedal edema and no calf tenderness
[2021-08-21] MEDS: BENZOCAINE 20% AER SPR (*SP) 56 GM CAN 1 SPRAY TOPICAL (07:49)
[2021-08-21] MEDS: WITCH HAZEL 40 PADS 1 PAD TOPICAL (07:49)
[2021-08-21] MEDS: DOCUSATE SODIUM 100 MG CAPSULE PO ×2 (07:49→17:38)
[2021-08-21] MEDS: MULTIVIT/MIN/PREN/FOL AC/IRON TABLET 1 TAB PO (07:49)
[2021-08-21 08:00] VITALS: BP 145/96; PULSE 77; RESP 18; TEMP 36.5
[2021-08-21 12:00] VITALS: BP 138/94; PULSE 76; RESP 20; TEMP 36.8
--- NOTE | 2021-08-21 13:00 | PC.NURSE ---
Breast pump provided due to weight and prematurity. Instructions given on cleaning, care, usage, there should be no pain, pumping schedule for milk production, collection, and storage of human milk. Parents are encouraged to record pumping schedule on the [feeding sheet/pumping log]. Patient was assessed for correct placement, flange size, to pump for comfort and nipple stretching/stimulation for adequate milk production. Mother voiced understanding of the education shared.
[2021-08-21 16:00] VITALS: BP 150/88; PULSE 70; RESP 18; TEMP 36.4
[2021-08-21] MEDS: IBUPROFEN 600 MG TABLET PO (17:47)
[2021-08-21 20:40] VITALS: BP 163/99; PULSE 83; RESP 16; TEMP 36.7
[2021-08-22 00:15] VITALS: BP 129/74; PULSE 64
[2021-08-22 08:00] VITALS: BP 146/64; PULSE 69; RESP 18; TEMP 36.6
--- NOTE | 2021-08-22 08:15 | P.PNOB_ITS ---
OB - PN: Subj Subjective Date/time seen: 08/22/21 08:15 no headaches, blurry vision, epigastric pain. Patient comments: no complaints, pain well controlled, incisional pain, t olerating diet and flatus present OB - PN: Obj Data Labs CBC & Chem 7: 08/20/21 04:54 08/20/21 04:54 OB - PN A/P Plan day: 3 Plan: routine care, discharge home and other Comments: Incision check in one week. Given precautions. Preeclampsia appears to be resolving. Pressures are reasonably good. No symptoms of preeclampsia. Hopeful discharge today. Time Spent With Patient Time: Total time spent is greater than 50% in coordination of care (as documented) at patient's floor/unit and/or counseling patient: Exam Const: General: comfortable, no acute distress and alert Resp: Effort & Inspection: normal respiratory effort Auscultation: no crac kles, no rales and no rhonchi Cardio: Rate: regular rate Heart sounds: no click, no murmurs and no rubs GI: Inspection: non-distended GI Palp: No Tenderness to palpation present (GI) Auscultation: normal bowel sounds Other: Incision - CDI Extrem: General: normal to inspection, no pedal edema and no calf tenderness
[2021-08-22 09:13] LABS: Rapid Plasma Reagin Non-Reactive (NonReactive)
[2021-08-22] MEDS: DOCUSATE SODIUM 100 MG CAPSULE PO (09:19)
[2021-08-22] MEDS: WITCH HAZEL 40 PADS 1 PAD TOPICAL (09:19)
[2021-08-22] MEDS: IBUPROFEN 600 MG TABLET PO (09:19)
[2021-08-22] MEDS: BENZOCAINE 20% AER SPR (*SP) 56 GM CAN 1 SPRAY TOPICAL (09:19)
[2021-08-22] MEDS: MULTIVIT/MIN/PREN/FOL AC/IRON TABLET 1 TAB PO (09:19)
--- NOTE | 2021-08-22 09:23 | PC.NURSE ---
Patient viewed the discharge video Mother & Baby Care, The First Two Weeks . Patient was given the opportunity and encouraged to ask questions. Patient verbalized understanding of information shared and has been given the mother/baby guide for home reference.
--- NOTE | 2021-08-22 09:24 | PC.NURSE ---
Self care and infant care discharge instructions given including follow up visit date and time. Pt. verbalized understanding. No questions or concerns voiced. Very pleasant and cooperative. at side.
[2021-08-22 11:54] VITALS: BP 145/93; PULSE 67; RESP 18; TEMP 37; O2SAT 98
--- NOTE | 2021-08-22 15:24 | PC.NURSE ---
[id number] Mother led the conversation with her experience and plan to feed her so far and her ability to independently latch optimally without discomfort. Reminded parents to use good handwashing technique to prevent infection. Mother is feeding appropriately for growth of and understands stimulating to eat if needed. Mother latched for an assessment after some brief skin to skin and feeding cues visualized. Infant has had appropriate feedings in the last 24 hours meets the outcomes for weight, output and jaundice at this time. Mother states she is confident to continue effectively her at home or when to call for assistance and denies any additional assistance or education at this time. Infant is feeding effectively at 35 weeks delivered and mother verbalized the importance of stimulating infant to drink at the breast with rocking motion instead of piston motion sucking. Reviewed how to visualize swallowing. Reinforced understanding of milk production, transition of milk, signs of adequate intake, prevention/relief of engorgement, responsive after visualizing feeding cues, the different methods of stimulating to breastfeed 2-3 hours after the start of the last feeding, community resources, medication information reviewed per [employer] and when to call a provider using the resource of the mom and baby guide/[facility] website. Mother voiced understanding of the education shared. Reported to the primary RN.
[2021-08-23 10:49] VITALS: BP 148/87; PULSE 70; RESP 16; TEMP 36.8; O2SAT 99
--- NOTE | 2021-09-12 08:20 | PM.OBDSVD ---
DS: Admitting Diagnosis Discharge Date 08/22/21 Admitting Diagnosis preeclampsia OB - DS: Summary OB Procedures : NST and Ultrasound OB Procedures Intrapartum: Spontaneous Vag Delivery OB Procedures: : None Time Spent with Patient Time attestation: Total time spent providing and/or coordinating discharge services: DS: Data Data Completed and Pending Completed studies during hospitalization: Pending at discharge 08/19/21 20:20 Surgical [PTH] Routine Discharge Plan Discharge Attending physician on discharge: Megan Andrade Consulting providers: Silvana Nixon ; Ifrah Reynolds Discharging Clinician: Megan Andrade Patient Disposition: Home, Self-Care Activity: pelvic rest Diet: regular Discharge Instructions: Education: Mom and Baby Guide Given to: Mother Follow-Up: Call your delivering provider's office for an appointment to be seen in: 1 Week for B/P check Mom and baby should come to the [facility] for the follow-up appointment. Appointment Date/Time: Monday, August 23, 2021 at 10:00 am What to expect at your follow-up visit: Blood Pressure Check Physical Assessment Call [phone] if you are unable to keep your appointment time. BREAST CARE: * Wear a snug supportive bra. * For engorgement discomfort: Breast Feeding: * Apply warm moist washcloths * Express milk as needed to relieve engorgement * Wear loose clothing Bottle Feeding: * May apply ice packs * For sore nipples: * Identify correct latch-on * Apply warm moist washcloths before and after nursing * Air dry nipples after nursing * May apply Lansinoh cream to nipples EPISIOTOMY/PERINEAL CARE: * Until bleeding stops, use your ga bottle after urinating * Change your pad frequently throughout the day * You may take sitz baths several times a day (fill your bathtub with warm water and soak for 20 minutes.) Do NOT bathe in the water * No tub baths until seen by your physician - You may shower ACTIVITY: * Rest as much as possible. * Do not exercise or lift anything heavier than your baby (such as laundry or other children.) * Avoid stairs or driving as much as possible. * Do not put anything into the vagina. No douching, tampons, or sexual activity until seen by physician. NOTIFY PHYSICIAN IF YOU HAVE ANY QUESTIONS OR IF ANY OF THE FOLLOWING SYMPTOMS OCCUR: * If your episiotomy or incision becomes red, swollen, or more painful than what you have experienced in the hospital. * If your vaginal bleeding becomes foul smelling. * If your vaginal bleeding becomes more heavy than a period or if your bleeding changes from pink to bright red. However, you may pass an occasional walnut-sized clot once or twice for the first week . * If you experience a sharp, shooting pain in you calves. * If you discover a hard, reddened area on your breast or if you experience flu-like symptoms. DIET: * Eat regular, well-balanced meals. * Drink plenty of fluids daily. If , drink to thirst. Patient Instructions: Antibiotic Form Stand Alone Forms: General Discharge Information Follow-up/Referrals: Megan Andrade MD [Physician] - 1 Week Discharge Medications: Continued nitrofurantoin macrocrystal 100 mg Capsule 100 mg PO Q12H Qty: 14 RF: 0 ursodiol 300 mg capsule 300 mg PO BID RF: 0 aspirin 81 mg Tablet 81 mg PO DAILY RF: 0 PNV cmb#95-ferrous fumarate-FA [] 28 mg iron- 800 mcg Tablet 1 tablet PO DAILY RF: 0 Date of admission: 08/19/21 10:05 Primary Care Provider: Verena,Blas Al Admitting Provider: Megan Andrade Attending physician on admission: Megan Andrade Condition: Stable
== END 2021-08-22 12:00 | disposition home or self-care (01) | DRG 805 ==
LOC: ANHOBOP 10:07 → ANHLDR 12:02 → ANHOB2 22:53
PROVIDERS: Advanced Practice Midwife; Admitting Provider Obstetrics & Gynecology; PCP Family Medicine; Visit Provider Obstetrics & Gynecology
DX: O14.14 Severe pre-eclampsia complicating childbirth (principal); K83.1 Obstruction of bile duct; Z37.0 Single live birth; Z3A.35 35 weeks gestation of pregnancy; O36.8330 Maternal care for abnormalities of the fetal heart rate or rhythm, third trimester, not applicable or unspecified; O13.4 Gestational [pregnancy-induced] hypertension without significant proteinuria, complicating childbirth; O24.429 Gestational diabetes mellitus in childbirth, unspecified control; O69.81X0 Labor and delivery complicated by cord around neck, without compression, not applicable or unspecified; O26.62 Liver and biliary tract disorders in childbirth
CPT/HCPCS: 36415; 59025; 80053; 81001; 82570; 82948; 84156; 84550; 85025; 86592; 86850; 86900; 86901; 87086; 88307; 90715; A9270; J0690; J2590; J2795; J3475; J7120

== ENCOUNTER 2024-04-18 10:36 | Outpatient (CLI) | payer OTHER, SELFPAY ==
--- NOTE | ~2024-04-18 | XR_ITS ---
EXAMINATION: XR elbow RT min 3V DATE: 04/18/2024 10:55 INDICATION: Right elbow pain and limited range of motion TECHNIQUE: Anteroposterior, two oblique and lateral views of the right elbow were obtained. COMPARISON: None. FINDINGS: Alignment is normal. No fracture or joint effusion. Joint spaces are normal. Soft tissues are unremar kable. IMPRESSION: 1. Normal right elbow radiographs. Reviewed, dictated and finalized at location B. AGE COLLECTOR DRIVER
== END 2024-04-18 10:37 | disposition home or self-care (01) ==
PROVIDERS: PCP Family Medicine; Visit Provider Family Medicine
DX: M25.521 Pain in right elbow (principal)
CPT/HCPCS: 73080

== ENCOUNTER 2024-07-04 14:31 | Outpatient (CLI) | payer OTHER, SELFPAY ==
--- NOTE | ~2024-07-04 | XR_ITS ---
EXAMINATION: XR ribs LT 2V w CXR 2V DATE: 07/04/2024 14:58 INDICATION: Left lateral rib pain. Chest pain. TECHNIQUE: Frontal and lateral views of the chest and 2 views on 3 radiographs of the left ribs were obtained. COMPARISON: Chest single view 08/04/2019 FINDINGS: CHEST TWO VIEWS: There is no pneumonia, pleural effusion, or pneumothorax. The heart size is normal. LEFT RIBS: There is no rib fracture. IMPRESSION: 1. No rib fracture. Reviewed, dictated and finalized at location L. IMPRESSION: 1. No rib fracture.
--- OUTSIDE RECORDS SUMMARY | 2024-07-04 14:36 | XMS_ITS | Referral Summary ---
Author Organization [facility] Address [address] [place] [address] Care Team Providers Care Registered Nurse Maternal Child Name Role Phone Unavailable Primary Care Provider Unavailabl e Source Comments [facility],non-christian hospital Affiliates and Associated Physician Practices is amultiple site organization consisting of ambulatory clinics and hospital sitesin [place], [place], [place] and [place]. This disclosure is being madepursuant to the Care Everywhere program and may not contain all information available regarding this patient. Last updated 18.[facility] Social History Tobacco Use Types Packs/Day Years Used Date Smoking Tobacco: Never Assessed Sex and Gender Information Value Date Recorded Sex Assigned at Not on file Gender Identity Not on file Sexual Orientation Not on file Plan of Treatment Not on file
--- OUTSIDE RECORDS SUMMARY | 2024-07-04 14:36 | XMS_ITS | Patient Health Summary ---
Author Organization [facility] Address [facility] [place] [address] Care Team Providers Care Advertising Executive Name Role Phone Unavailable Primary Care Provider Unavailabl e Note from [facility],non-owned Affiliates and Associated Physician Practices is amultiple site organization consisting of ambulatory clinics and hospital sitesin [place], [place], [place] and [place]. This disclosure is being madepursuant to the Care Everywhere program and may not contain all information available regarding this patient. Last updated 18.[facility] Social History Tobacco Use Types Packs/Day Years Used Date Smoking Tobacco: Never Assessed Sex and Gender Information Value Date Recorded Sex Assigned at Not on file Gender Identity Not on file Sexual Orientation Not on file Procedures * ECHO CONSULT - (Performed 06/28/2021) Performed for Encounter for screening for congenital cardiac abnormalities (HCC) Results * ECHO CONSULT - (06/28/2021 3:05 PM CLAY CARMAN) 06/28/2021 3:05 PM CLAY CARMAN Narrative Procedure Note Carola Palma MD - 06/28/[address] [place] [address] Fax Echocardiogram Report Pat.Name: CASEY BENNETT Pat.ID: [id number] St.Date: 06/28/2021 Refer.MD: Carola Palma Exam Time: 3:05:00 PM Study Type: Echo Age: 11 1990,31Y Sex: FEMALE Sonogrphr: Emma Raymondberta, [facility] [place] Pat. Stat.:Outpatient Reason for Study: In-vitro Fertilization SUMMARY: Study Data: GA: 28 1/7 weeks. PRIYANKA: 09-19-21 . : 1. Para: 0. Type: Jeff. Lie: Breech. Impression: The echocardiogram was within normal limits; however small atrial and ventricular septal defects and persistent ductus arteriosus cannot be excluded as findings. Findings: Anatomic Relationships: Left sided cardiac apex (levocardia). There is normal visceral-cardiac situs, and normal segmental cardiac anatomical relationship. Systemic Veins: There is normal systemic venous return. Pulmonary Veins: The visualized pulmonary veins drain normally to the left atrium. Right Atrium: The right atrial size is normal. Left Atrium: The left atrial size is normal. Atrial Septum: Patent foramen ovale is seen with the foramen flap bowing from right to left and color flow is right to left. Tricuspid Valve: The tricuspid valve is structurally normal. The inflow pattern is normal. Tricuspid velocity is within the normal range. There is no regurgitation present. Mitral Valve: The mitral valve is structurally normal. The inflow pattern is normal. Mitral velocity is within the normal range. There is no regurgitation present. Right Ventricle: The cavity size is normal. The wall thickness is normal. The systolic function is normal. RV Outflow Tract: The outflow tract is normal. Left Ventricle: The cavity size is normal. The wall thickness is normal. The systolic function is normal. LV Outflow Tract: The outflow tract is normal. Ventricular Septum: There is no defect with no shunting. Pulmonary Valve: Leaflets exhibited normal mobility. The transpulmonic velocity is within the normal range. There is no regurgitation present. Aortic Valve: Leaflets exhibited normal mobility. The transaortic velocity is within the normal range. There is no regurgitation present. Pulmonary Artery: The MPA is normal with confluent branch pulmonary arteries. Aorta: aortic arch visualized and is without obstruction by 2D, color flow and Doppler. Ductus Arteriosus: The antegrade flow velocity and pattern in the ductal arch is normal. A normal ductus arteriosus is appreciated. Hydrops Assessment: No pericardial effusion. No evidence of ascites or pleural effusion. Rhythm: The rhythm is normal. There is 1:1 AV conduction. Dopplers: Flow in the ductus venosus is normal. The umbilical vein flow pattern is normal. The umbilical artery flow pattern is normal. MEASUREMENTS: DOPPLER Mitral Valve MV pkE -0.32 m/s MV E/A 0.8 no unit MV pkA -0.4 m/s Tricuspid Valve TV pkE -0.24 m/s TV E/A 0.71 no unit TV pkA -0.34 m/s Aortic Valve AVpkVel 0.72 m/s Heart Rate HR 150 bpm Signed 06/28/2021 03:54 PM Carola Palma MD Carola Palma MD ECHO ORDERABLES [facility] [address] [place] [address]
--- OUTSIDE RECORDS SUMMARY | 2024-07-04 14:36 | XMS_ITS | Data Portability ---
Author Organization [facility] [place] Address [address] [place] [address] Assessment Encounter Date Assessment Date Assessment LastModified by Organization Details LastModified Time 08/19/2021 08/19/2021 Patient is _35__weeks . Discussed plan. Not available 08/19/2021 11:04:56 09/28/2021 09/28/2021 no kendall, visual changes, epigastric pain, hx family with HTN, start labetalol f/u sunday bp check declines cycle control for now, pcos, will see what happens after ,any chest pain to ED Not available 09/28/2021 14:56:14 Plan of Treatment Reminders Order Date Submit Date Provider Last Modified By Organization Details Last Modified Time Details Appointments None recorded. Lab HbA1c (hemoglobi n A1c), blood 2021 [facility] (Lab), [address] , [place], [address], 04:51:05 shbg (sex hormone-bi nding globulin), serum 2021 [facility] (Lab), [address], [place], [address], 04:51:04 insulin, serum 2021 [facility] (Lab), [address] [place], [address], 04:51:05 glucose, fasting, QN, serum or plasma 2021 [facility] (Lab), [address] [facility], [place], [address], 04:51:04 Referral None recorded. Procedures None recorded. Surgeries None recorded. Imaging None recorded. Medication Orders Mary 0.35 mg tablet [address], [id number], 17:21:40 labetalol 200 mg tablet 2021 [facility] [place], [id number], 14:53:27 Patient TargetsNo targets recorded. Patient InstructionsNo instructions recorded. Reason for Referral None Reported. Results Created Date Observation Date Name Description Value Unit Range Abnormal Flag Note LastModifiedBy Organization Detail LastModifiedTime 07/29/19 22 07/28/2021 CMP(C OMPRE HENSI VE METAB OLIC PANEL ) sodium 137 mmol/ L 133-14 6 Not Available [facility] (Lab) [address] [place], [address], 08/01/2021 23:52:41 07/29/19 22 07/28/2021 CMP(C OMPRE HENSI VE METAB OLIC PANEL ) potassium 3.6 mmol/ L 3.5-5. 1 Not Available [facility] (Lab) [address] [facility], [place], [address], 08/01/2021 23:52:41 07/29/19 22 07/28/2021 CMP(C OMPRE HENSI VE METAB OLIC PANEL ) chloride 105 mmol/ L 98-107 Not Available [facility] (Lab) [address] [place], [address], 08/01/2021 23:52:41 07/29/19 22 07/28/2021 CMP(C OMPRE HENSI VE METAB OLIC PANEL ) carbon dioxide 24 mmol/ L 21-31 Not Available [facility] (Lab) [address] [facility], [place], [address], 08/01/2021 23:52:41 07/29/19 22 07/28/2021 CMP(C OMPRE HENSI VE METAB OLIC PANEL ) anion gap 8 mmol/ L 4-13 Not Available [facility] (Lab) [address] [facility], [place], [address], 08/01/2021 23:52:41 07/29/19 22 07/28/2021 CMP(C OMPRE HENSI VE METAB OLIC PANEL ) blood urea nitrogen 8 mg/dL 7-25 Not Available [facility] (Lab) [address], [place], [address], 08/01/2021 23:52:41 07/29/19 22 07/28/2021 CMP(C OMPRE HENSI VE METAB OLIC PANEL ) creatinine 0.74 mg/dL 0.60-1 .30 Not Available [facility] (Lab) [address] [facility], [place], [address], 08/01/2021 23:52:41 07/29/19 22 07/28/2021 CMP(C OMPRE HENSI VE METAB OLIC PANEL ) egfrcr (CKD-epi 2020) >90 mL/mi n/1.7 3_m2 >=60 Not Available [facility] (Lab) [address] [facility], [place], [address], 08/01/2021 23:52:41 07/29/19 22 07/28/2021 CMP(C OMPRE HENSI VE METAB OLIC PANEL ) calcium 8.6 mg/dL 8.3-10 .5 Not Available [facility] (Lab) [address] [facility], [place], [address], 08/01/2021 23:52:41 07/29/19 22 07/28/2021 CMP(C OMPRE HENSI VE METAB OLIC PANEL ) glucose 106 mg/dL 70-100 high Not Available [facility] (Lab) [address] [facility], [place], [address], 08/01/2021 23:52:41 07/29/19 22 07/28/2021 CMP(C OMPRE HENSI VE METAB OLIC PANEL ) protein, total 5.9 g/dL 6.4-8. 3 low Not Available [facility] (Lab) [address] [facility], [place], [address], 08/01/2021 23:52:41 07/29/19 22 07/28/2021 CMP(C OMPRE HENSI VE METAB OLIC PANEL ) albumin 3.5 g/dL 3.5-5. 0 Not Available [facility] (Lab) [address] [facility], [place], [address], 08/01/2021 23:52:41 07/29/19 22 07/28/2021 CMP(C OMPRE HENSI VE METAB OLIC PANEL ) ALT 19 units /L 9-43 Not Available [facility] (Lab) [address] [facility], [place], [address], 08/01/2021 23:52:41 07/29/19 22 07/28/2021 CMP(C OMPRE HENSI VE METAB OLIC PANEL ) alkaline phosphatase 51 units /L 34-104 Not Available [facility] (Lab) [address] [facility], [place], [address], 08/01/2021 23:52:41 07/29/19 22 07/28/2021 CMP(C OMPRE HENSI VE METAB OLIC PANEL ) AST 22 units /L 13-39 Not Available [facility] (Lab) [address] [facility], [place], [address], 08/01/2021 23:52:41 07/29/19 22 07/28/2021 CMP(C OMPRE HENSI VE METAB OLIC PANEL ) bilirubin, total 0.5 mg/dL 0.2-1. 2 Not Available [facility] (Lab) [address] [facility], [place], [address], 08/01/2021 23:52:41 07/29/19 22 07/28/2021 BILE ACIDS , TOTAL bile acids total 11 umol/ L 0-19 Perfo rming Organ izati on Infor mat n: Site ID: AMD Name: [facility] Addre ss: [id number] [address], [place] Dire tor: Amelia Remy M.D., PhD Not Available [facility] (Lab) [address] [place], [address], 08/01/2021 23:52:41 08/04/19 22 08/03/2021 BILE ACIDS , TOTAL bile acids total 15 umol/ L 0-19 Perfo rming Organ izati on Infor [facility] n: Site ID: AMD Name: [facility] [place] Addre ss: [id number] [address] [place] a[place], [place] Dire tor: Amelia Remy M.D., PhD Not Available [facility] (Lab) [address] [place], [address], 08/07/2021 06:07:47 08/13/19 22 08/12/2021 BILE ACIDS , TOTAL bile acids total 19 umol/ L 0-19 Perfo rming Organ izati on Infor [facility] n: Site ID: AMD Name: [facility] [place] Addre ss: [id number] [address], [place] Dire tor: Amelia Remy M.D., PhD Not Available [facility] (Lab) [address] [place], [address], 08/17/2021 23:18:25 08/20/19 22 08/19/2021 CULTU RE: GROUP B STREP SCREE N result report SEE RESULT S BELOW Test: Cultu re: Group B Strep Scree n - Vagin al/Re ctal Speci men Sourc e: Vagin a/Rec mala Speci men Type: Vagin al/Re ctal Speci men Date: 2021 2:28 PM Resul t Date: 022 2:21 PM Resul t Statu s: Final resul t Abnor mal: No Resul ting Lab: [facility] [address] [facility] [address] Tel: [phone] CULTU RE ----- ----- ----- --- No Group B strep isola hugo at 2 days (laura ctive broth enhan cemen t) Not Available [facility] (Lab) [address] [facility], [place], [address], 08/22/2021 15:23:50 01/24/20 22 01/23/2022 GLUCO SE, FASTI NG glucose, fasting 75 mg/dL 70-100 Not Available [facility] [address] [place], [address], 01/24/2022 04:51:04 01/24/20 22 01/23/2022 HUMAN SEX HORMO NE TRACY NG GLOBU ROLLY sex hormone binding globulin 16.2 nmole s/L 18.2-1 35.5 low Not Available [facility] [address] [place], [address], 01/24/2022 04:51:04 01/24/20 22 01/23/2022 INSUL IN insulin, total 5.0 uIU/m L 1.9-23 .0 Not Available [facility] [address] [place], [address], 01/24/2022 04:51:05 01/24/20 22 01/23/2022 HEMOG LOBIN A1C hemoglobin A1C 5.2 % 0-5.6 The Ameri can [facility] [facility] [employer] iatio n recom mends that a prima ry goal of thera py tereul d be a HBA1C of < 7% and that physi cians shoul d reeva luate the treat ment regim en in patie nts with HBA1C value s consi stent ly > 8%. <5.7% Ratna l 5.7 - 6.4% Incre ased risk for diabe chhaya >=6.5 % Diagn ostic of diabe chhaya <7.0% Goal of thera py >8.0% Actio n sugge sted Not Available [facility] [address] [place], [address], 01/24/2022 04:51:05 07/29/19 22 07/28/2021 US, obste tric, bioph ysica l profi le + non-s tress test No observ ation record ed. [email or web address] [facility] [address], [place], [address], 07/28/2021 17:53:45 07/29/19 22 07/28/2021 US, obste tric, bioph ysica l profi le + non-s tress test No observ ation record ed. [email or web address] [address], [place], [address], 07/28/2021 20:48:11 07/29/19 22 11/04/2021 non-s tress test No observ ation record ed. [email or web address] [place] [address], [place], [address], 11/04/2021 10:51:05 08/04/19 22 08/03/2021 non-s tress test No observ ation record ed. [place] [address], [place], [address], 08/03/2021 17:50:26 08/04/19 22 08/03/2021 US, obste tric, bioph ysica l profi le + non-s tress test No observ ation record ed. [email or web address] [place] [address], [place], [address], 08/03/2021 18:52:10 08/04/19 22 08/03/2021 US, obste tric, bioph ysica l profi le + non-s tress test No observ ation record ed. [email or web address] [address], [place], [address], 08/03/2021 20:25:12 08/10/19 22 08/09/2021 US, obste tric, bioph ysica l profi le No observ ation record ed. [email or web address] [place] [address] [address], [place], [address], 08/10/2021 09:55:59 08/10/19 22 08/09/2021 non-s tress test No observ ation record ed. [email or web address] [place] [address] [address] [facility], [place], [address], 10/25/2021 14:06:40 08/13/19 22 08/12/2021 non-s tress test No observ ation record ed. [email or web address] [place] [address], [place], [address], 08/12/2021 16:58:24 08/17/19 22 08/16/2021 US, obste tric, follo w-up No observ ation record ed. [email or web address] [place] [address], [place], [address], 08/16/2021 12:37:36 08/17/19 22 08/16/2021 US, obste tric, bioph ysica l profi le + non-s tress test No observ ation record ed. [email or web address] [place] [address], [place], [address], 08/16/2021 12:37:49 08/17/19 22 08/16/2021 US, obste tric, follo w-up No observ ation record ed. [email or web address] [address], [place], [address], 08/16/2021 15:39:58 08/17/19 22 08/16/2021 non-s tress test No observ ation record ed. [place] [address], [place], [address], 08/16/2021 12:31:25 Result Notes None recorded. Problems Name Problem SNOMED Code Status Onset Date Resolution Date Notes Provider Name and Address Organization Details Recorded Time Jamia angel [id number] Completed 201502/18/2021 Jamia angel;Record ed Elsewher e: No Locat ion: [facility] S ource: EHR Customer Relations Consultant stefan: Vic Lino ce ID: 0001 Fady lable Time: 04:15:00 PM Ayleen Yan summers [facility] 16:11:24 Amenorrh ea [id number] Completed 201602/18/2021 Amenorrh ea;Recor ded Elsewher e: No Locat ion: [facility] S ource: EHR Customer Relations Consultant stefan: Vic Lino ce ID: 0001 Fady lable Time: 09:00:00 AM Ayleen summers [facility] 16:11:10 Acne 05885113 Completed 201502/18/2021 Acne;Rec orded Elsewher e: No Locat ion: [facility] S ource: EHR Customer Relations Consultant stefan: N Ruthti ce ID: 0001 Fady lable Time: 04:30:00 PM Ayleen summers [facility] 16:11:08 Abnormal weight gain 965805465 Completed 201702/18/2021 Abnormal weight gain;Rec orded Elsewher e: No Locat ion: [facility] S ource: EHR Customer Relations Consultant stefan: N Ruthti ce ID: 0001 Fady lable Time: 10:15:00 AM Ayleen summers, [facility] 16:11:11 Body mass index 30+ - obesity 635472673 Completed 201702/18/2021 Body mass index (BMI) 33.0-33. 9, adult;Re corded Elsewher e: No Locat ion: [facility] S ource: [facility] Areao stefan: N Ruthti ce ID: 0001 Fady lable Time: 10:15:00 AM Ayleen summers, [facility] 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 16:11:23 Left lower quadrant pain [id number] Completed 201502/18/2021 LLQ pain;Rec orded Elsewher e: No [facility] S ource: EHR Customer Relations Consultant stefan: N Ruthti ce ID: 0001 Fady lable Time: 04:30:00 PM Ayleen summers, [facility] 16:11:20 Female infertil ity associat ed with anovulat ion [id number] Completed 201502/18/2021 Female infertil ity associat ed w/ anovulat ion;Kaushik rded Elsewher e: No [facility] S ource: EHR Customer Relations Consultant stefan: N Ruthti ce ID: 0001 Fady lable Time: 04:15:00 PM Ayleen summers, [facility] 1 16:11:17 Screenin g for malignan t neoplasm of cervix Completed 201702/18/2021 Screenin g for malignan t neoplasm s of the cervix;R ecorded Elsewher e: No Locat ion: [facility] S ource: EHR Customer Relations Consultant stefan: N Ruthti ce ID: 0001 Fady lable Time: 10:15:00 AM Ayleen summers, [facility] 1 16:11:15 Pelvic and perineal pain 020534491 Completed 201502/18/2021 Pelvic and perineal pain;Rec orded Elsewher e: No Locat ion: [facility] S ource: [facility] Customer Relations Consultant stefan: N Ruthti ce ID: 0001 Fady lable Time: 05:00:00 PM Ayleen summers, [facility] 1 16:11:19 Pregnanc y [id number] Completed 202008/26/2021 Deajonnathan summers, [facility] 2 10:23:31 In vitro fertiliz ation Completed antenata l testing at 36 weeks, echo 24-28wks - pt schedule d June Saidajeremias Chanelanatoliy kristopher, [facility] 2 12:25:07 Blood glucose outside referenc e range 506671659 Completed failed 1hr 06/30 pt checking BS to review at 07/14 OB appt Saida Jaxon null, [facility] 2 12:25:07 Gestatio nal diabetes mellitus 18082788 Completed Pt ruled in for GDM from checking BS. BS QID. Declines diet teaching . Antenata l testing @ 32 wks Saida Coates null, [facility] 2 12:25:07 Cholesta sis 19693299 Completed mild- bile acids 11 - antenata l testing deliver 37-38 09/27, Twice weekly BPP; 300mg ursodiol twice daily Saiad Coates hl null, [facility] 2 12:25:07 Pregnanc y-induce d hyperten windy 84249345 Completed GHTN Saida Coates hl null, [facility] 2 12:25:07 Pre-ecla mpsia 195604378 Completed 2021 24hr TP - 374 Saida Coates null, [facility] 2 12:25:07 Problem Notes None recorded. Procedures Surgical History Date Name Laterality Status Provider Name and Address Organization Details Recorded Time 02/22/20 21 Date of Last Pap Smear completed [facility] 03/08/2021 15:14:12 01/02/20 21 in vitro fertilization completed [facility] 03/08/2021 13:59:57 12/28/19 21 oocyte recovery completed [facility] 03/08/2021 15:16:48 11/22/19 21 Hysteroscopy completed [facility] 03/08/2021 15:17:49 07/23/19 21 HYCOSY - Hysterosalpingo contrast sonography completed [facility] 03/08/2021 15:17:38 04/23/19 19 in vitro fertilization completed [facility] 03/08/2021 15:15:49 04/23/19 19 oocyte recovery completed [facility] 03/08/2021 15:16:50 04/23/19 19 HYCOSY - Hysterosalpingo contrast sonography completed [facility] 03/08/2021 15:17:32 Imaging Results Imaging Date Name Status LastModified by Organ ation Details LastModified Time 07/28/2021 US, obstetric, biophysical profile + non-stress test completed [email or web address] [facility] [address], [place], [address], 07/28/2021 17:53:45 07/28/2021 US, obstetric, biophysical profile + non-stress test completed [email or web address] [address], [place], [address], 07/28/2021 20:48:11 11/04/2021 non-stress test completed [email or web address] [facility] [address], [place], [address], 11/04/2021 10:51:05 08/03/2021 non-stress test completed [email or web address] [facility] [address], [place], [address], 08/03/2021 17:50:26 08/03/2021 US, obstetric, biophysical profile + non-stress test completed [email or web address] [facility] [address], [place], [address], 08/03/2021 18:52:10 08/03/2021 US, obstetric, biophysical profile + non-stress test completed [email or web address] [address], [place], [address], 08/03/2021 20:25:12 08/09/2021 US, obstetric, biophysical profile completed [email or web address] [place] [address], [address], 08/10/2021 09:55:59 08/09/2021 non-stress test completed [place] [id number] [facility] [address], [address], 10/25/2021 14:06:40 08/12/2021 non-stress test completed [email or web address] [facility] [address], [place], [address], 08/12/2021 16:58:24 08/16/2021 US, obstetric, follow-up [facility] [address], [place], [address], 08/16/2021 12:37:36 08/16/2021 US, obstetric, biophysical profile + non-stress test completed [email or web address] [address], [place], [address], 08/16/2021 12:37:49 08/16/2021 US, obstetric, follow-up completed [email or web address] [facility], [place], [address], 08/16/2021 15:39:58 08/16/2021 non-stress test completed [email or web address] [facility] [address], [place], [address], 08/16/2021 12:31:25 Procedure Notes None recorded. Medical Equipment None Reported. Allergies Allergen ID Allergen Name Allergen Category Reaction Reaction Severity Criticality Documentation Date Start Date Code Code System Note Provider Name and Address Organization Details Recorded Time 70766 Product containin g penicilli n (product) medicatio n hives Not available Not available 04/09/2020 71176 8001 SNOMED Ayleen Heredia [place], [place] - [facility] 16:00:06 Medications Name Sig Start Date Stop Date Status Note LastModified by Organization Details LastModified Time labetalol 200 mg tablet Take 1 tablet twice a day by oral route. active Not Available Not Available No t Available Ritalin 20 mg tablet take 1 tablet by oral route 2 times every day 02/18 completed Prescrib ed Elsewher e: Yes Loca tion: [facility] M odify By: brendan [email or web address] DateTime : 02/04/20 16 04:15:00 PM Not Available Not Available Not Available progester one 50 mg/mL intramusc ular oil Inject 0.1 mL every day by intramus cular route. 03/10 completed Not Available Not Available Not Available methylpre dnisolone 8 mg tablet 03/08 completed Not Available Not Available Not Available tobramyci n 0.3 % eye drops 08/26 completed Not Available Not Available Not Available ursodiol 300 mg capsule Take 1 capsule twice a day by oral route. 09/28 completed Not Available Not Available Not Available estradiol 2 mg tablet 03/08 completed Not Available Not Available Not Available Provera 10 mg tablet take 1 tablet by oral route every day 02/18 completed Prescrib ed Elsewher e: No [facility] By: dominique penn DateTime : 02/23/20 04:30:00 PM Not Available Not Available Not Available Baby Aspirin 81 mg chewable tablet Chew 1 tablet every day by oral route. 08/26 completed Not Available Not Available Not Available leuprolid e 1 mg/0.2 mL subcutane ous kit 03/10 completed Not Available Not Available Not Available azithromy lisandra 500 mg tablet 03/08 completed Not Available Not Available Not Available Mary 0.35 mg tablet Take 1 tablet every day by oral route. 2021 active Not Available Not Available Not Avai lable bupropion HCl XL 150 mg 24 hr tablet, extended release 03/08 completed Not Available Not Available Not Available nitrofura ntoin monohydra te/macroc rystals 100 mg capsule 08/26 completed Not Available Not Available Not Available Menopur 75 unit subcutane ous solution 03/10 completed Not Available Not Available Not Available Follistim AQ 900 unit/1.08 mL subcutane ous cartridge 03/10 completed Not Available Not Available Not Available Lo Loestrin Fe 1 mg-10 mcg (24)/10 mcg (2) tablet take 1 tablet by oral route every day 02/18 completed Prescrib ed Elsewher e: No Locat ion: [facility] odify By: eveline penn DateTime : 05/22/19 18 10:20:30 AM Not Available Not Available Not Available PNV #30-iron- folic acid-omeg a3 active Not Available Not Available Not Available Estarylla 0.25 mg-35 mcg tablet 03/08 completed Not Available Not Available Not Available Contrave 8 mg-90 mg tablet,ex tended release take 2 tablet by oral route 2 times every day in the morning and evening 05/04 completed Prescrib ed Elsewher e: No Locat ion: [facility] M odify By: molly kevin DateTime : 02/23/20 16 04:30:00 PM Not Available Not Available Not Available Novarel 5,000 unit intramusc ular solution 03/08 completed Not Available Not Available Not Available Vitals Date Recorded Body height Body mass index (BMI) Body weight Systolic blood pressure Diastolic blood pressure Systolic blood pressure Diastolic blood pressure Provider Name and Address Organization Details Last Updated DateTime 2 165.1 cm 36.9 kg/m2 011350. 77698 g 164 mm[Hg] 107 mm[Hg] 160 mm[Hg] 100 mm[Hg] Dea Silva [facility] 2 10:44:43 Date Recorded Body height Body mass index (BMI) Systolic blood pressure Diastolic blood pressure Provider Name and Address Organization Details Last Updated DateTime 08/26/2021 165.1 cm 36.6 kg/m2 142 mm[Hg] 92 mm[Hg] Dea Silva [facility] 08/26/2021 10:24:10 Date Recorded Body weight Provider Name an d Address Organization Details Last Updated DateTime 08/26/2021 81471.3214 g Saida Zamorano [facility] 08/26/2021 14:32:11 Date Recorded Body height Body mass index (BMI) Body weight Systolic blood pressure Diastolic blood pressure Systolic blood pressure Diastolic blood pressure Provider Name and Address Organization Details Last Updated DateTime 2 165.1 cm 33.8 kg/m2 35241.2 5 g 156 mm[Hg] 108 mm[Hg] 180 mm[Hg] 90 mm[Hg] Dea Silva [facility] 2 14:24:36 Date Recorded Body height Body mass index (BMI) Body weight Systolic blood pressure Diastolic blood pressure Provider Name and Address Organization Details Last Updated DateTime 01/23/2022 165.1 cm 32.1 kg/m2 30827.33 g 150 mm[Hg] 84 mm[Hg] Soha Rowley [facility] 2 16:37:23 Social History Question Answer Notes LastModified by Organizat ion Details LastModified Time Tobacco Smoking Status Never Smoker Edward summers, [facility] 04/06/2021 17:19:46 Do You Have An Advance Directive? No [email or web address] Information not available 03/08/2021 What Is Your Level Of Alcohol Consumption? None [email or web address] Information not available 03/08/2021 Are You Blind Or Do You Have Difficulty Seeing? No Information not available 03/08/2021 What Is Your Level Of Caffeine Consumption? Occasional [email or web address] Information not available 03/08/2021 How Much Tobacco Do You Chew? None [email or web address] Information not available 03/08/2021 In The 14 Days Before Symptom Onset, Have You Had Close Contact With A Laboratory-confir med COVID-19 While That Case Was Ill? No [email or web address] Information not available 03/08/2021 In The 14 Days Before Symptom Onset, Have You Had Close Contact With A Person Who Is Under Investigation For COVID-19 While That Person Was Ill? No [email or web address] Information not available 03/08/2021 Have You Been To An Area Known To Be High Risk For COVID-19? No [email or web address] Information not available 03/08/2021 Are You Deaf Or Do You Have Serious Difficulty Hearing? No [email or web address] Information not available 03/08/2021 What Type Of Diet Are You Following? REGULAR Information not available 03/08/2021 What Is The Highest Grade Or Level Of School You Have Completed Or The Highest Degree You Have Received? 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 No [email or web address] Information not available 03/08/2021 Do You Use Protection During Sex? No [email or web address] Information not available 03/08/2021 Do You Use Your Seat Belt Or Car Seat Routinely? Yes [email or web address] Information not available 03/08/2021 Do You Have Smoke And Carbon Monoxide Detectors In Your Home? Yes [email or web address] Information not available 03/08/2021 How Much Tobacco Do You Smoke? No Information not available 03/08/2021 Do You Feel Stressed (tense, Restless, Nervous, Or Anxious, Or Unable To Sleep At Night)? [id number] [email or web address] Information not available 03/08/2021 Do You Use Any Illicit Or Recreational Drugs? No [email or web address] Information not available 03/08/2021 Do You Use Sunscreen Routinely? No [email or web address] Information not available 03/08/2021 Have You Used IV Drugs? No [email or web address] Information not available 03/08/2021 Sex: Unknown Functional Status Question Answer Note LastModified by Organizat ion Details LastModified Time Do you have difficulty walking or climbing stairs? No [email or web address] Information not available 06/01/2021 Are you able to walk? YESWOREST [email or web address] Information not available 03/08/2021 Are you able to care for yourself? Yes [email or web address] Information not available 06/01/2021 Do you have difficulty dressing or bathing? No [email or web address] Information not available 06/01/2021 What is your exercise level? None [email or web address] Information not available 03/08/2021 Mental Status None recorded. Family History Relationship Description Onset Age of this Age Resolved Age Notes LastModified by Organization Details LastModified Time Father Diabetes mellitus [email or web address] Not available 2020 16:17:30 Father Hypertensive disorder [email or web address] Not available 2020 16:17:53 Father Obesity [email or web address] Not available 04/06/2021 17:19:46 Maternal Grandfather Diabetes mellitus [email or web address] Not available 2020 16:17:30 Maternal Grandfather Malignant tumor of colon [email or web address] Not available 2020 16:18:25 Paternal Grandmother Diabetes mellitus [email or web address] Not available 2020 16:17:30 Paternal Grandfather Heart disease [email or web address] Not available 2020 16:18:02 Mother Disorder of thyroid gland Not available 2020 16:18:52 Mother Obesity [email or web address] Not available 04/06/2021 17:19:46 Mother Disorder of gallbladder [email or web address] Not available 03/23 17:19:46 Brother Developmenta l academic disorder [email or web address] Not available 2020 17:19:46 Medical History Condition Response Allergies (Food, seasonal, environmental ) N Other N Breast Cancer N Drug/Latex Allergies/Reactions N Blood Transfusion N Dermatologic Disorders N Lung Disease N Defects or Inherited Disease N Breast Problem N Gestational Diabetes N Hematologic disorders N Anesthesia Complications N History of STI N Deep Vein Thrombosis N Polycystic ovary syndrome Y Anxiety Disorder N Autoimmune disease N Arthritis N Infertility Y Polyps N Acid Reflux (GERD) N History of abnormal pap N Cancer N Stroke N Varicosities N Neurologic/Epilepsy N Endometriosis N High Cholesterol N Headaches N Fibromyalgia N Kidney Disease N Heart Problems N Kidney or Bladder Problems N Thyroid Problems N GI Problems N Eating Disorder N Anemia N Art (IVF or FET) N Psychiatric Illness N Ovarian Cancer N Diabetes N Pulmonary (TB, Asthma) N Hepatitis/Liver Disease N No Past Medical History N Eczema N Urinary Tract Infection N Abuse/Domestic Violence N Asthma N Trauma/Violence N Depression/ depression N Heart Disease N Pre-Eclampsia N Hypertension Y Osteoporosis N Thrombophilias N Gynecological History Statement/Question Response Abnormal Pap N Date of LMP 12/11/2020 On BCP's at Conception? N N Was last menstrual period normal Y STIs/STDs N HPV Vaccine Y Duration of Flow (days) 4 Current Control Method Other Age at First Child 17 Frequency of Cycle (Q days) 37 Sexually Active? Y Fertility Issues Age of first menstrual cycle 13 Date of Last Pap Smear 02/21/2021 Sexual Problems? N Desired Control Method None LMP Approximate N Obstetrics History GPAL:G 2 P 1 0 1 1 Type Value Full Term 1 Spontaneous 1 Living 1 Total 2 Past Encounters Encounter ID Performer Location Encounter Start Date Encounter Closed Date Diagnosis/Indication Diagnosis SNOMED-CT Code Diagnosis ICD10 Code Diagnosis Note [id number] Jeannine Saldana [facility] [address] [address] 02/21/2021 15:57:37 02/21/2021 17:06:12 Gynecologic examination 91102582 Z01.419 test positive 141254401 Z32.01 Risk factors addressed: Tobacco Cessation, Safe Sexual Practices, environmen garcia, work hazards, travel restrictio ns, seat belt use.Eat a health well balanced diet, avoid alcohol, tobacco, and street drugs.Enga ge in daily low impact exercise, avoid temperatur e extremes, and cat, rodent, and bird feces.Avoi d travel to areas where zika virus is a concern.Of fered cf/sma/nip t. Pt checking with insurance. Handouts given and discussed with patient.Ch ildbirth classes recommende d.New OB sheet given.If previous , counseling . Denies history of hypertensi on. I did see another elevated bp in her records. Spoke with Dr Andrade and recommende d baby aspirin daily. Will plan to check baseline hypertensi on labs at new ob. Encouraged flu and covid vaccines. Pt states reproducti ve endocrinol ogist has recommende d that she wait until the 3rd trimester for the covid vaccine.Pt verbalizes that she understand s the importance of above instructio ns.All questions were answered.P atient reminded to have annual well woman examinatio n and address preventati ve healthcare . [id number] [facility] [address] [address] 02/21/2021 15:59:16 02/21/2021 17:26:26 [id number] Mirella Villa [facility] [address],[place] [address] 03/08/2021 13:53:08 03/08/2021 15:43:30 screening [id number] Z36.82 [id number] Balaji Andrade MD [facility] [address] [address] 03/08/2021 13:54:12 03/08/2021 16:58:52 Routine care 448169742 Z34.81 [id number] Silvana Nixon [facility] [address],[place] [address] 04/06/2021 17:19:54 04/07/2021 09:50:00 Routine care 029352484 Z34.[id number] [facility] [address],[place] [address] 04/06/2021 17:19:37 04/07/2021 09:48:45 [id number] Jeannine Saldana [facility] [address],[place] [address] 05/05/2021 16:13:45 05/05/2021 17:38:22 Routine care 762067825 Z34.92 - induced hypertension 94226518 O13.9 Return for bp check in [id number] [facility] [address],[place] [address] 05/05/2021 16:11:08 05/06/2021 09:10:13 screening for malformation [id number] Z36.3 [id number] Jaida Arango [facility] [address],[place] [address] 05/09/2021 09:45:45 05/09/2021 11:31:59 Chronic hypertension complicating AND/OR reason for care during 34875287 O16.9 Pt here for BP check. BP is 132/85. Pt has been checking BPs over the weekend. on 05/06 BP was 152/86 and rpt later in the day was 144/83. 05/07 BP was 139/79. 05/08 BP was around 150/80, pt didn't have exact reading. Ok per KP to continue to monitor. Pt getting PIH labs today and KP wants to get 24hr TP as well. Pt instructed on 24hr TP and will complete and bring back this week. Pt denies any PIH sxs and given precaution s. Pt verbalized understand ing. JOVON westfall [id number] Silvana Nixon [facility] [address],[place] [address] 06/01/2021 16:29:39 06/01/2021 18:15:25 Routine care [id number] Z34.92 [id number] [facility] [address],[place] [address] 06/29/2021 16:13:15 06/29/2021 17:16:41 Routine care [id number] Z34.92 [id number] [facility] [address],[place] [address] 07/14/2021 12:18:42 07/14/2021 14:36:12 Routine care [id number] Z34.92 [id number] Mirella Villa [facility] [address],[place] [address] 07/14/2021 12:17:04 07/14/2021 13:26:40 IVF - in-vitro fertilization [id number] 2102 O09.813 O99.810 Z3A.30 [id number] Mirella Villa [facility] [address],[place] [address] 07/28/2021 16:35:14 07/28/2021 17:10:27 Gestational diabetes mellitus class A1 13987381 O24.410 Z3A.32 [id number] Jaida Arango [facility] [address],[place] [address] 07/28/2021 16:35:46 07/28/2021 18:04:39 Gestational diabetes mellitus class A1 48442352 O24.410 Z3A.32 [id number] Balaji Andrade MD [facility] [address],[place] [address] 07/28/2021 16:35:58 07/29/2021 16:19:26 Routine care [id number] Z34.81 [id number] Ayleen Heredia [facility] [address],[place] [address] 08/03/2021 17:03:53 08/03/2021 17:52:16 Cholestasis of [id number] O26.619 [id number] Balaji Andrade MD [facility] [address],[place] [address] 08/03/2021 17:04:49 08/03/2021 18:43:43 Cholestasis of 752868007 O26.[id number] [facility] [address],[place] [address] 08/03/2021 17:05:01 08/03/2021 18:55:23 Gestational diabetes mellitus class A1 12674266 O24.410 Z3A.33 O26.613 [id number] [facility] [address],[place] [address] 08/09/2021 13:56:02 08/09/2021 14:44:18 [id number] [facility] [address],[place] [address] 08/12/2021 15:56:18 08/12/2021 17:01:02 Routine care [id number] Z34.92 [id number] [facility] [address],[place] [address] 08/12/2021 15:56:18 08/12/2021 17:01:02 Gestational diabetes mellitus class A1 52449726 O24.410 Z3A.[id number] [facility] [address],[place] [address] 08/16/2021 11:24:15 08/16/2021 12:12:46 Gestational diabetes mellitus class A1 85552768 O24.410 O13.3 O26.613 Z3A.35 [id number] Ayleen Heredia [facility] [address] [place] [address] 08/16/2021 11:24:29 08/16/2021 12:32:40 Gestational diabetes mellitus class A1 62494106 O24.410 O13.3 O26.613 Z3A.35 [id number] Silvana Nixon CNM [facility] [address],[place] [address] 08/19/2021 10:29:58 08/19/2021 11:14:15 Routine care 514019916 Z34.92 [id number] Ayleen Heredia [facility] [address],[place] [address] 08/19/2021 10:30:21 08/19/2021 16:50:50 [id number] Silvana Nixon [facility] [address],[place] [address] 08/26/2021 09:59:06 08/26/2021 11:10:56 Past history of pre-eclampsia 9046298062 34803 Z87.59 doing well, asymptomat ic f/u pp visit, decline cycle control [id number] Silvana Nixon [facility] [address],[place] [address] 09/28/2021 14:15:34 09/28/2021 15:03:12 care [id number] Z39.2 [id number] Balaji Andrade MD [facility] [address],[place] [address] 01/23/2022 16:29:50 01/23/2022 17:45:52 Contraception care management 685050550 Z30.9 Polycystic ovary syndrome 557701998 E28.2 This patient is a 31-year-ol d female presents for contracept jayson care management . She is breastfeed ing. She also has PCOS. She would like a control pill that is compatible with these 2 issues. We talked about her options. Talked about each option that was acceptable breast-fee ding. We agreed that the progestero ne only pill would likely be her best option. She was offered IUD but declined. She had given some considerat ion. She was given instructio ns on taking the control pill. She was asking about weight loss. We discussed it for a time. She has questions about her insulin resistance and type 2 diabetes. We agreed to obtain some laboratory values it could help us determine her prediabete s status. We spent more than 20 minutes face-to-fa ce. More than 50% was counseling . Health Concerns Section Related Observation LastModified by Organization Detai ls LastModified Time None Recorded Concern Status LastModified by Organization Details LastModified Time None Recorded Advance Directives Directive N: Payers Encounter Date Sequence Insurance Name Policy Number Policy Saldana Covered Member ID Saldana Member ID Guarantor Name 08/19/2021 1 [place] [id number] [facility] [id number] [facility] 08/19/2021 1 [place] [id number] [facility] [id number] [employer] 08/26/2021 1 [place] [id number] [facility] [id number] [employer] 09/28/2021 1 [place] [id number] [facility] [id number] [employer] 01/23/2022 1 [place] [facility] Diaz [id number] [facility] Notes Date Note Type Note Provider Name and Address Organization Details Recorded Time 08/26/2021 text/html bp check post delivery for preeclampsia, doing well, , no complaints, itching resolved (cholestasis) Silvana Nixon CNM [address], [place], [address], [facility] 08/26/2021 11:10:19 09/28/2021 text/html VisitReported bypatient.Quality:N Context:complicatio ns of : PIH; complications of labor: PIH; complications: none; feeding choice: breast; good support from partner/family Associated Symptoms:no abnormal bleeding; no vaginal discharge; no pelvic pain; no constipation; no fecal incontinence; no dysuria; normal moodNotes:bp elevated at home, sxs resolved, doing well Silvana Nixon CNM [address], [place], [address], [facility] 09/28/2021 14:56:21 01/23/2022 text/html This patient is a 31-year-old female presents for contraceptive care management. She is . She also has PCOS. She would like a control pill that is compatible with these 2 issues. We talked about her options. Talked about each option that was acceptable breast-feeding. We agreed that the progesterone only pill would likely be her best option. She was offered IUD but declined. She had given some consideration. She was given instructions on taking the control pill. She was asking about weight loss. We discussed it for a time. She has questions about her insulin resistance and type 2 diabetes. We agreed to obtain some laboratory values it could help us determine her prediabetes status. We spent more than 20 minutes [id number]. More than 50% was counseling. Balaji Andrade MD [address], [place], [address], [facility] 01/23/2022 17:33:05 OBGyn Episode Ob Episode Information Episode Created Date Number of Fetuses Patient Bloodtype Patient rh Status Prepregnancy Weight lbs Domestic Partner Domestic Partner Phone Father Name Terminal Operations Supervisor Status 02/22/20 21 1 CLOSED Fetus Data First Name Last Name Admitted to NICU Weight (g) Sex Living Outcome Pediatric Complications Fetus ID Race Codes Race Delivery Type , Spontane ous [id number] Jose Calculation Initial Jose Date Initial Exam Date Initial Exam Provider Initial Ultrasound Date Last Menstrual Period Date Ultra Sound Weeks Gestation 0 Eighteen To Twenty Week Jose Update Ultra Sound Date Fundal Height At Umbil Quickening Date Ultra Sound Latest Weeks Gestation Final Jose Confirmed By Final Jose Confirmed Date Final Jose Date Ultra Sound Latest Days Gestation 0 0 Menstrual History Last Menstrual Date Menses Monthly On Bcp Conception Prior Menses Frequency Hcg Plus Date Menarche Onset Age Delivery Information Delivery Date Delivery Type Labor Anesthesia Weeks Gestation Incision Type Labor Labor Length Hrs Delivered By Post Complications Tubal Sterilization Discharge Date Comments 8 Discharge Information Feeding Method Contraceptive Method Maternal HG B and HCT Levels Ob Episode Information Episode Created Date Number of Fetuses Patient Bloodtype Patient rh Status Prepregnancy Weight lbs Domestic Partner Domestic Partner Phone Father Name Terminal Operations Supervisor Status 03/08/20 21 1 O Positive 190 CLOSED Fetus Data First Name Last Name Admitted to NICU Weight (g) Sex Living Outcome Pediatric Complications Fetus ID Race Codes Race Delivery Type 2409.70 75 F true Full Term [id number] Vaginal Delivery Problems Problem Notes embryo transfer done on 01/01.24 HR - 374 (H), PCR 1.09 (H), AST/ALT WNLPer MFM they don't have to see IVF pts. Per pt will just schd anatomy scan here and will get echo at no echo scheduled yet, will try to schd by end of Apr Problem Name Start Date End Date Resolution Snomed Code Not e Blood glucose outside reference range [id number] failed 1hr pt checking BS to review at 07/14 OB appt Pre-eclampsia 08/12/2021 [id number] 24hr TP - 374 Gestational diabetes mellitus 78834410 Pt ruled in for GDM from checking BS. BS QID. Declines diet teaching. testing @ 32 wks -induced hypertension 49608466 GHTN In vitro fertilization [id number] 5 testing at 36 weeks, echo 24-28wks - pt scheduled week june Cholestasis 61813278 mild- bi le acids 11 - testing deliver 37-38 09/27, Twice weekly BPP; 300mg ursodiol twice daily Jose Calculation Initial Jose Date Initial Exam Date Initial Exam Provider Initial Ultrasound Date Last Menstrual Period Date Ultra Sound Weeks Gestation 10/18/2021 03/08/2021 02/21/2021 12/13/2020 10 Eighteen To Twenty Week Jose Update Ultra Sound Date Fundal Height At Umbil Quickening Date Ultra Sound Latest Weeks Gestation Final Jose Confirmed By Final Jose Confirmed Date Final Jose Date Ultra Sound Latest Days Gestation 0 [email or web address] 03/08/2021 09/20/19 22 0 Pre-saeed Flowsheet Flowsheet Date 03/08/2021 Farris Score Blood Edema Fundus Height Fundus Units Glucose Ketones Leukocytes Nitrite Labor Signs Protein Cervic Dilation Cervic Effacement Cervic Station Type Weight in lbs Pre/Post Dialysis Refused BP Diastolic BP Location Tested BP Systolic BP Type Fetus Heart Rate Present Fetus Movement Comments embryo transfer done 01/02/20 21 Flowsheet Date 03/08/2021 Farris Score Blood Edema Fundus Height Fundus Units Glucose Ketones Leukocytes Nitrite Labor Signs Protein Cervic Dilation Cervic Effacement Cervic Station neg none trace Type Weight in lbs Pre/Post Dialysis Refused Weight 192.462427196580 BP Diastolic BP Location Tested BP Systolic BP Type 84 135 Fetus Heart Rate Present Fetus Movement A No Comments this patient is a 31-year-ol d 2 para 0010 at 12 weeks gestation who presents for initial care. She had in-vitro fertilization and had embryo transfer done 01/01/2021. Patient states that having some light cramping and nausea. she has an unremarkable medical history. She had genetic testing done Prior to . She declined NIPT. She has history of PCOS. She declined vaccination prior to in vitro and will likely not have vaccination. She was told by her infertility doctor not to be vaccinated. I gave her our recommendations : ACOG. I recommended flu vaccines in Tdap as well. She required an MFM consult at 20 weeks and testing at 36 weeks. She will begin routine care. Flowsheet Date 04/06/2021 Farris Score Blood Edema Fundus Height Fundus Units Glucose Ketones Leukocytes Nitrite Labor Signs Protein Cervic Dilation Cervic Effacement Cervic Station Type Weight in lbs Pre/Post Dialysis Refused BP Diastolic BP Location Tested BP Systolic BP Type Fetus Heart Rate Present Fetus Movement Comments Flowsheet Date 04/06/2021 Farris Score Blood Edema Fundus Height Fundus Units Glucose Ketones Leukocytes Nitrite Labor Signs Protein Cervic Dilation Cervic Effacement Cervic Station neg none trace Type Weight in lbs Pre/Post Dialysis Refused Weight 191.134449539343 BP Diastolic BP Location Tested BP Systolic BP Type 84 136 Fetus Heart Rate Present Fetus Movement A Yes Comments gender us today, may do afp if can leave work (lab not here) precautions reviewed Flowsheet Date 05/05/2021 Farris Score Blood Edema Fundus Height Fundus Units Glucose Ketones Leukocytes Nitrite Labor Signs Protein Cervic Dilation Cervic Effacement Cervic Station none none trace Type Weight in lbs Pre/Post Dialysis Refused Weight 201.881224075674 BP Diastolic BP Location Tested BP Systolic BP Type 74 152 89 154 Fetus Heart Rate Present Fetus Movement A Yes Comments Doing well. No h/a, v/d or e /p. Will check labs today. PIH Precautions discussed in detail. Having a girl Bianca ! Baseline u/s to follow visit. Return in 1 week for bp check. Flowsheet Date 05/05/2021 Farris Score Blood Edema Fundus Height Fundus Units Glucose Ketones Leukocytes Nitrite Labor Signs Protein Cervic Dilation Cervic Effacement Cervic Station Type Weight in lbs Pre/Post Dialysis Refused BP Diastolic BP Location Tested BP Systolic BP Type Fetus Heart Rate Present Fetus Movement Comments Flowsheet Date 05/09/2021 Farris Score Blood Edema Fundus Height Fundus Units Glucose Ketones Leukocytes Nitrite Labor Signs Protein Cervic Dilation Cervic Effacement Cervic Station Type Weight in lbs Pre/Post Dialysis Refused BP Diastolic BP Location Tested BP Systolic BP Type 85 132 Fetus Heart Rate Present Fetus Movement Comments Flowsheet Date 06/01/2021 Farris Score Blood Edema Fundus Height Fundus Units Glucose Ketones Leukocytes Nitrite Labor Signs Protein Cervic Dilation Cervic Effacement Cervic Station neg none 24 trace Type Weight in lbs Pre/Post Dialysis Refused Weight 208.152116199376 BP Diastolic BP Location Tested BP Systolic BP Type 77 130 Fetus Heart Rate Present A 156 Present Fetus Movement A Yes Comments planning low intervention bi rth, doing well, precautions reviewed, plan GCT next visit, will have rn check on order for echo, pt has not scheduled yet, taking asa daily, f/u 4 weeks Flowsheet Date 06/29/2021 Farris Score Blood Edema Fundus Height Fundus Units Glucose Ketones Leukocytes Nitrite Labor Signs Protein Cervic Dilation Cervic Effacement Cervic Station neg none 26 trace Type Weight in lbs Pre/Post Dialysis Refused Weight 216.006492811892 BP Diastolic BP Location Tested BP Systolic BP Type 84 131 Fetus Heart Rate Present A 145 Fetus Movement A Yes Comments PATIENT STATES THAT HAVING S OME PELVIC PAIN AND NAUSEA. doing well plan growth us in 2 weeks precautions reviewed Flowsheet Date 07/14/2021 Farris Score Blood Edema Fundus Height Fundus Units Glucose Ketones Leukocytes Nitrite Labor Signs Protein Cervic Dilation Cervic Effacement Cervic Station Type Weight in lbs Pre/Post Dialysis Refused BP Diastolic BP Location Tested BP Systolic BP Type Fetus Heart Rate Present Fetus Movement Comments Flowsheet Date 07/14/2021 Farris Score Blood Edema Fundus Height Fundus Units Glucose Ketones Leukocytes Nitrite Labor Signs Protein Cervic Dilation Cervic Effacement Cervic Station neg none trace Type Weight in lbs Pre/Post Dialysis Refused Weight 219.886612392224 BP Diastolic BP Location Tested BP Systolic BP Type 83 137 Fetus Heart Rate Present Fetus Movement A Yes Comments PATIENT IS HAVING BH CONTRAC TIONS AND PELVIC PAIN. EFW 56%, breech reviewed spinning babies, will smitha rn call for blood sugar log, f/u 2 weeks Flowsheet Date 07/28/2021 Farris Score Blood Edema Fundus Height Fundus Units Glucose Ketones Leukocytes Nitrite Labor Signs Protein Cervic Dilation Cervic Effacement Cervic Station Type Weight in lbs Pre/Post Dialysis Refused BP Diastolic BP Location Tested BP Systolic BP Type Fetus Heart Rate Present Fetus Movement Comments Flowsheet Date 07/28/2021 Farris Score Blood Edema Fundus Height Fundus Units Glucose Ketones Leukocytes Nitrite Labor Signs Protein Cervic Dilation Cervic Effacement Cervic Station Type Weight in lbs Pre/Post Dialysis Refused BP Diastolic BP Location Tested BP Systolic BP Type Fetus Heart Rate Present Fetus Movement Comments Flowsheet Date 07/28/2021 Farris Score Blood Edema Fundus Height Fundus Units Glucose Ketones Leukocytes Nitrite Labor Signs Protein Cervic Dilation Cervic Effacement Cervic Station 32 Type Weight in lbs Pre/Post Dialysis Refused Weight 218.598363492330 BP Diastolic BP Location Tested BP Systolic BP Type 99 R arm 157 sitting 90 R arm 140 sitting Fetus Heart Rate Present A 145 Fetus Movement A Yes Comments Pruritus over the arms and l egs. Some under her breasts and around her sides. Checking bile acids. That is pending. We also talked about her blood pressure concerns. She is concerned about stress related travel to work. A stressful work atmosphere. She is going to begin checking her blood pressures at home. She started testing this week Flowsheet Date 08/03/2021 Farris Score Blood Edema Fundus Height Fundus Units Glucose Ketones Leukocytes Nitrite Labor Signs Protein Cervic Dilation Cervic Effacement Cervic Station Type Weight in lbs Pre/Post Dialysis Refused BP Diastolic BP Location Tested BP Systolic BP Type Fetus Heart Rate Present Fetus Movement Comments Flowsheet Date 08/03/2021 Farris Score Blood Edema Fundus Height Fundus Units Glucose Ketones Leukocytes Nitrite Labor Signs Protein Cervic Dilation Cervic Effacement Cervic Station 33 Type Weight in lbs Pre/Post Dialysis Refused Weight 220.568075888774 BP Diastolic BP Location Tested BP Systolic BP Type 89 R arm 133 sitting Fetus Heart Rate Present A 143 Fetus Movement Comments discussed management of chol estasis of . Up-to-date authors recommend twice weekly BPP is and delivery between 37 weeks and 38 and 6. we are going to follow up bile acids weekly. If they are stable will lower the frequency. Patient wants induction at 37 and 0. Flowsheet Date 08/03/2021 Farris Score Blood Edema Fundus Height Fundus Units Glucose Ketones Leukocytes Nitrite Labor Signs Protein Cervic Dilation Cervic Effacement Cervic Station Type Weight in lbs Pre/Post Dialysis Refused BP Diastolic BP Location Tested BP Systolic BP Type Fetus Heart Rate Present Fetus Movement Comments Flowsheet Date 08/09/2021 Farris Score Blood Edema Fundus Height Fundus Units Glucose Ketones Leukocytes Nitrite Labor Signs Protein Cervic Dilation Cervic Effacement Cervic Station Type Weight in lbs Pre/Post Dialysis Refused BP Diastolic BP Location Tested BP Systolic BP Type Fetus Heart Rate Present Fetus Movement Comments NO NST WAS PERFORMED. BP WAS HIGH 162/100, 165/113, AND 170/90 PATIENT WAS SENT TO ER Flowsheet Date 08/09/2021 Farris Score Blood Edema Fundus Height Fundus Units Glucose Ketones Leukocytes Nitrite Labor Signs Protein Cervic Dilation Cervic Effacement Cervic Station Type Weight in lbs Pre/Post Dialysis Refused BP Diastolic BP Location Tested BP Systolic BP Type Fetus Heart Rate Present Fetus Movement Comments Flowsheet Date 08/12/2021 Farris Score Blood Edema Fundus Height Fundus Units Glucose Ketones Leukocytes Nitrite Labor Signs Protein Cervic Dilation Cervic Effacement Cervic Station Type Weight in lbs Pre/Post Dialysis Refused BP Diastolic BP Location Tested BP Systolic BP Type Fetus Heart Rate Present Fetus Movement Comments Flowsheet Date 08/12/2021 Farris Score Blood Edema Fundus Height Fundus Units Glucose Ketones Leukocytes Nitrite Labor Signs Protein Cervic Dilation Cervic Effacement Cervic Station neg none trace Type Weight in lbs Pre/Post Dialysis Refused Weight 222.38188073144 BP Diastolic BP Location Tested BP Systolic BP Type 91 150 Fetus Heart Rate Present Fetus Movement A Yes Comments PATIENT IS HAVING HEADACHES AND VISION CHEANGES AND NAUSEA. reviewed nst and blood pressure, c/o kendall, to LD for evaluation Flowsheet Date 08/16/2021 Farris Score Blood Edema Fundus Height Fundus Units Glucose Ketones Leukocytes Nitrite Labor Signs Protein Cervic Dilation Cervic Effacement Cervic Station Type Weight in lbs Pre/Post Dialysis Refused BP Diastolic BP Location Tested BP Systolic BP Type Fetus Heart Rate Present Fetus Movement Comments Flowsheet Date 08/16/2021 Farris Score Blood Edema Fundus Height Fundus Units Glucose Ketones Leukocytes Nitrite Labor Signs Protein Cervic Dilation Cervic Effacement Cervic Station Type Weight in lbs Pre/Post Dialysis Refused Weight 221.733668581152 BP Diastolic BP Location Tested BP Systolic BP Type 95 156 84 137 Fetus Heart Rate Present Fetus Movement Comments Flowsheet Date 08/19/2021 Farris Score Blood Edema Fundus Height Fundus Units Glucose Ketones Leukocytes Nitrite Labor Signs Protein Cervic Dilation Cervic Effacement Cervic Station neg trace none trace 2cm 70% -2 Type Weight in lbs Pre/Post Dialysis Refused Weight 222.39180715250 BP Diastolic BP Location Tested BP Systolic BP Type 107 164 100 160 Fetus Heart Rate Present Fetus Movement A Yes Comments patient states that is havin g headaches, vision changes, contractions, discharge, and swelling. to LD discussed iol will decide after ld visitha resolves with tylenol no visual changes, bp elevated at home 140-150/90-100, multiple sever range pressures Flowsheet Date 08/19/2021 Farris Score Blood Edema Fundus Height Fundus Units Glucose Ketones Leukocytes Nitrite Labor Signs Protein Cervic Dilation Cervic Effacement Cervic Station Type Weight in lbs Pre/Post Dialysis Refused BP Diastolic BP Location Tested BP Systolic BP Type Fetus Heart Rate Present Fetus Movement Comments Flowsheet Date 08/26/2021 Farris Score Blood Edema Fundus Height Fundus Units Glucose Ketones Leukocytes Nitrite Labor Signs Protein Cervic Dilation Cervic Effacement Cervic Station Type Weight in lbs Pre/Post Dialysis Refused Weight 220.661729159465 BP Diastolic BP Location Tested BP Systolic BP Type 92 142 Fetus Heart Rate Present Fetus Movement Comments Menstrual History Last Menstrual Date Menses Monthly On Bcp Conception Prior Menses Frequency Hcg Plus Date Menarche Onset Age 0812/13/2020 Genetic Screening And Infection History Question Response Note Mental Retardation/Autism false Patient's Age Will Be 35 Years Or Older At Estim ated Date of Delivery false Thalassemia (Korean, Grenadian, Mediterranean, Or Background): MCV < 80 false Neural Tube Defect (Meningomyelocele, Spina Bifi da, Or Anencephaly) false Congenital Heart Defect false Down Syndrome false Brandon-Sachs (eg, Amish, Cajun, Yoruba-M[place]za) f alse Atif Disease false Sickle Cell Disease Or Trait () false Hemophilia Or Other Blood Disorders false Muscular Dystrophy false Cystic Fibrosis false Strong's Chorea false Intellectual Disability/Autism false If Yes, Was Person Tested For Fragile X? false Other Inherited Genetic Or Chromosomal Disorder false Maternal Metabolic Disorder (eg, Type 1 Diabetes , PKU) false Patient Or Baby's Father Had A Child With Defects Not Listed Above false Recurrent Loss, Or A Stillbirth false Medications (including Suppl ements, Vitamins, Herbs, OTC Drugs), Illicit/Recreational Drugs, Alcohol false If Yes, Agent(s) And Strength/Dosage false Any Other Genetic History false Live With Someone With TB Or Exposed To TB false Patient Or Partner Has History Of Genital Herpes false Rash Or Viral Illness Since Last Menstrual Perio d false History Of STD, Gonorrhea, Chlamydia, HPV, Syphi lis false Other Infection History false History of HIV false History of Hepatitis false Prior GBS-infected child false Hemoglobinopathy Or Carrier false Other Structural Defect false Recent Travel History Outside of Country false Delivery Information Delivery Date Delivery Type Labor Anesthesia Weeks Gestation Incision Type Labor Labor Length Hrs Delivered By Post Complications Tubal Sterilization Discharge Date Comments 2 Induce d Regional-Ep idural 35.4 true Silvana Nixon CNM gdm, ghtn, severe pre eclampsia , cholestas is, ivf embryo transfer & gbs unknown Discharge Information Feeding Method Contraceptive Method Maternal HG B and HCT Levels Breast
--- OUTSIDE RECORDS SUMMARY | 2024-07-04 14:36 | XMS_ITS | Clinical Summary ---
Author Organization [facility] Address [address] [place] [address] Care Team Providers Care All Source Intelligence Name Role Phone Unavailable Primary Care Provider Unavailabl e Source Comments [facility] Affiliates and Associated Physician Practices is amultiple site organization consisting of ambulatory clinics and hospital sitesin [place], [place], [place] and [place]. This disclosure is being madepursuant to the Care Everywhere program and may not contain all information available regarding this patient. Last updated 18.[facility] [employer] Social History Tobacco Use Types Packs/Day Years Used Date Smoking Tobacco: Never Assessed Sex and Gender Information Value Date Recorded Sex Assigned at Not on file Gender Identity Not on file Sexual Orientation Not on file Plan of Treatment Health Maintenance Due Date Last Done Comments PAP SMEAR 1992 HIV SCREENING 02/24/2007 HEPATITIS C SCREENING 02/20/2010 DTAP/TDAP/TD VACCINES (1 - Tdap) 02/24/2011 HEPATITIS B VACCINE (1 of 3 - 19+ 3-dose series) 02/24/2011 COVID-19 VACCINE ( - 2023-2 5 season) 2023 INFLUENZA VACCINE (#1) 2023 DEPRESSION SCREENING 04/23/2024 ZOSTER VACCINE (1 of 2) 02/24/2042 HIB VACCINE Aged Out No longer eligi ble based on patient's age to complete this topic HPV VACCINE Aged Out No longer eligi ble based on patient's age to complete this topic MENINGOCOCCAL (Group B) VACC INE SHARED DECISION-MAKING Aged Out No longer eligibl e based on patient's age to complete this topic MENINGOCOCCAL GROUPS A/C/Y/W VACCINE Aged Out No longer eligible b ased on patient's age to complete this topic PNEUMOCOCCAL VACCINE Aged Out No long er eligible based on patient's age to complete this topic
[2024-07-04 14:53] LABS: Basophils Absolute Auto 0.03 K/mm3 (0.00-0.10); Basophils Percent Auto 0.3 % (0.0-1.0); Eosinophils Absolute Auto 0.12 K/mm3 (0.02-0.50); Eosinophils Percent Auto 1.2 % (1.0-6.0); Hematocrit 42.5 % (35.0-49.0); Hemoglobin 13.9 g/dL (12.0-15.0); Immature Granulocyte Absolute 0.03 K/mm3 (0.00-0.00); Immature Granulocyte Percent A 0.3 % (0.0-0.0); Lymphocytes Absolute Auto 2.71 K/mm3 (1.10-4.50); Lymphocytes Percent Auto 27.3 % (18.0-42.0); Mean Corpuscular HGB Conc 32.7 g/dL (32-36); Mean Corpuscular Hemoglobin 28.5 pg (27.0-31.0); Mean Corpuscular Volume 87.1 fL (78.0-102.0); Mean Platelet Volume 8.4 fl (9.2-11.8); Monocytes Absolute Auto 0.58 K/mm3 (0.10-0.90); Monocytes Percent Auto 5.9 % (2.0-11.0); Neutrophils Absolute Auto 6.44 K/mm3 (1.70-7.20); Platelet Count Result 298 K/mm3 (150-420); Red Blood Count 4.88 M/mm3 (4.20-5.40); Red Cell Distribution Width 12.2 % (11.6-14.4); White Blood Count 9.9 K/mm3 (4.8-10.8)
[2024-07-04 15:10] LABS: Anion Gap 10 mmol/L (4-12); Blood Urea Nitrogen 14 mg/dL (7-18); Calcium 9.6 mg/dL (8.5-10.1); Carbon Dioxide 29 mmol/L (21-32); Chloride 103 mmol/L (98-108); Creatine Kinase 122 U/L (26-192); Estimated Glomerular Filt Rate > 60; Glucose 109 mg/dL (70-99); Osmolality Calculated 295 mOsm/kg (285-295); Potassium 3.8 mmol/L (3.5-5.1); Sodium 142 mmol/L (136-145); Troponin I 5.6 ng/L (0.00-60.4)
== END 2024-07-04 14:32 | disposition home or self-care (01) ==
PROVIDERS: PCP Family Medicine; Visit Provider Family Medicine
DX: R07.89 Other chest pain (principal)
CPT/HCPCS: 36415; 71046; 71100; 80048; 82550; 84484; 85025